=== PATIENT | male | born 1960 | race African-American/Black ===

== ENCOUNTER → 2019-07-26 15:45 | Outpatient (CLI) | payer BC, SELFPAY ==
[2019-07-26 15:45] VITALS: BMI 26.8
[2019-07-26 16:48] LABS: Anion Gap 5 (5-15); BUN 16 mg/dL (7-18); BUN/Creat Ratio 19.6 RATIO (10-20); Chloride 106 mmol/L (98-107); Creatinine, Serum 0.82 mg/dL (0.70-1.30); EST Glomerular Filtration Rate 103 mL/min (>60); Est Glom Filt Rate - Afr Amer 125 mL/min (>60); Glucose 82 mg/dL (74-106); Potassium 3.9 mmol/L (3.5-5.1); Sodium Level 139 mmol/L (136-145)
== END ==
PROVIDERS: PCP Internal Medicine; Referring Provider Internal Medicine; Visit Provider Internal Medicine
DX: I10 Essential (primary) hypertension (principal)
CPT/HCPCS: 36415; 80048

== ENCOUNTER → 2020-02-25 15:12 | Outpatient (CLI) | payer BC, SELFPAY ==
[2019-08-20 14:23] VITALS: BMI 26.8
--- NOTE | 2020-02-25 15:49 | EKG12_ITS ---
Test Reason : CHEST PAIN Blood Pressure : / mmHG Vent. Rate : 065 BPM Atrial Rate : 065 BPM P-R Int : 204 ms QRS Dur : 090 ms QT Int : 390 ms P-R-T Axes : 071 064 049 degrees QTc Int : 405 ms Normal sinus rhythm Voltage criteria for left ventricular hypertrophy Abnormal ECG Confirmed by DINA OSBORN, NICHO ([id number]), society editor MARLA CAMPBELL ([id number]) on 03/01/2020 10:52:15 AM Referred By: Luke Cai Confirmed By:NICHO ARROYO MD
[2020-02-25 16:57] LABS: Absolute Lymphocyte Count 2.21 X10^3/uL (0.83-4.51); Absolute Neutrophil Count 1.6 X10^3/uL (2.0-7.7); Basophil# 0.04 X10^3/uL; Basophil% 0.9 % (0-1); Eosinophil# 0.13 X10^3/uL; Hematocrit 40.7 % (40-54); Hemoglobin 12.8 g/dL (13.0-16.5); Lymphocyte # 2.21 X10^3/ul (4.0); Lymphocyte % 50.8 % (19-41); Mean Corp Hgb Conc 31.4 g/dL (32-36); Mean Corpuscular Hgb 28.3 pg (27.0-32.0); Mean Corpuscular Volume 89.8 fL (80-94); Mean Platelet Vol. 9.6 fl (6.2-12.0); Monocyte# 0.35 X10^3/uL; NRBC Flagged by Analyzer 0 % (0-5); Neutrophil # 1.61 X10^3/uL (2.7-7.7); Neutrophil % 37.1 % (47-70); Platelet Count 301 K/mm3 (150-450); RBC Distribution Width CV 12.4 % (11.6-14.6); RBC Distribution Width SD 40.9 fl (35.1-43.9); Red Blood Count 4.53 M/mm3 (4.6-6.2); White Blood Count 4.4 K/mm3 (4.4-11.0)
[2020-02-25 17:30] LABS: ALB/GLOB Ratio 0.8 RATIO (0.9-2.4); AST(SGOT) 20 U/L (15-37); Alanine Aminotransfer ALT/SGPT 26 U/L (16-61); Albumin, Serum 3.8 g/dL (3.2-5.0); Alkaline Phosphatase 68 U/L (45-117); Anion Gap 6 (5-15); BUN 18 mg/dL (7-18); Calcium,Total 8.9 mg/dL (8.5-10.1); Chloride 104 mmol/L (98-107); Cholesterol 202 mg/dL (200); EST Glomerular Filtration Rate 51 mL/min (>60); Est Glom Filt Rate - Afr Amer 62 mL/min (>60); Globulin 4.5 g/dL (2.2-4.2); Glucose 88 mg/dL (74-106); High Density Lipoprotein 75 mg/dL; Magnesium 2.3 mg/dL (1.6-2.6); PSA,Total - Annual Screen < 0.01 ng/mL (0.00-4.00); Potassium 3.9 mmol/L (3.5-5.1); Protein, Total 8.3 g/dL (6.4-8.2); Sodium Level 140 mmol/L (136-145); Thyroid Stim Hormone (TSH) 0.85 uIU/mL (0.358-3.74); Triglycerides 53 mg/dL; Very Low Density Lipoprotein 11 mg/dL (5-40)
== END ==
PROVIDERS: PCP Internal Medicine; Referring Provider Nurse Practitioner Family; Visit Provider Nurse Practitioner Family
DX: R00.2 Palpitations (principal); I10 Essential (primary) hypertension; E78.5 Hyperlipidemia, unspecified; J45.909 Unspecified asthma, uncomplicated; Z85.46 Personal history of malignant neoplasm of prostate
CPT/HCPCS: 36415; 80053; 80061; 83735; 84153; 84443; 85025; 93005; G0103

== ENCOUNTER → 2020-03-06 11:04 | Outpatient (CLI) | payer BC, SELFPAY ==
[2019-08-20 14:23] VITALS: BMI 26.8
== END ==
PROVIDERS: PCP Internal Medicine; Referring Provider Nurse Practitioner Family; Visit Provider Nurse Practitioner Family
DX: R00.2 Palpitations (principal)
CPT/HCPCS: 93225; 93226

== ENCOUNTER → 2020-07-04 16:00 | Outpatient (CLI) | payer BC, SELFPAY ==
[2020-07-04 17:01] LABS: BUN 11 mg/dL (7-18); EST Glomerular Filtration Rate 92 mL/min (>60); Glucose 132 mg/dL (74-106)
[2020-07-04 17:02] LABS: Anion Gap 6 (5-15); BUN/Creat Ratio 12.2 RATIO (10-20); Calcium,Total 8.8 mg/dL (8.5-10.1); Chloride 107 mmol/L (98-107); Est Glom Filt Rate - Afr Amer 112 mL/min (>60); Potassium 3.5 mmol/L (3.5-5.1); Sodium Level 142 mmol/L (136-145)
[2020-07-05 08:40] LABS: Hemoglobin A1c 5.9 % (3.8-5.6)
== END ==
PROVIDERS: PCP Internal Medicine; Referring Provider Nurse Practitioner Family; Visit Provider Nurse Practitioner Family
DX: R94.4 Abnormal results of kidney function studies (principal); R73.09 Other abnormal glucose
CPT/HCPCS: 36415; 80048; 83036

== ENCOUNTER → 2022-02-01 | Outpatient (CLI) | payer BC, SELFPAY ==
[2022-02-01 15:58] LABS: Absolute Lymphocyte Count 2.54 X10^3/uL (0.83-4.51); Absolute Neutrophil Count 1.9 X10^3/uL (2.0-7.7); Basophil# 0.03 X10^3/uL; Basophil% 0.6 % (0-1); Eosinophil# 0.17 X10^3/uL; Eosinophils% 3.3 % (0-5); Hematocrit 41.6 % (40-54); Hemoglobin 13.4 g/dL (13.0-16.5); Lymphocyte # 2.54 X10^3/ul (0.83-4.51); Mean Corp Hgb Conc 32.2 g/dL (32-36); Mean Corpuscular Hgb 29.1 pg (27.0-32.0); Mean Corpuscular Volume 90.2 fL (80-94); Mean Platelet Vol. 9.6 fl (6.2-12.0); Monocyte# 0.53 X10^3/uL; Monocyte% 10.2 % (0-10); NRBC Flagged by Analyzer 0 % (0-5); Neutrophil % 36.7 % (47-70); Platelet Count 270 K/mm3 (150-450); RBC Distribution Width CV 12.8 % (11.6-14.6); RBC Distribution Width SD 42.2 fl (35.1-43.9); Red Blood Count 4.61 M/mm3 (4.6-6.2); White Blood Count 5.2 K/mm3 (4.4-11.0)
[2022-02-01 16:33] LABS: ALB/GLOB Ratio 0.7 RATIO (0.9-2.4); AST(SGOT) 17 U/L (15-37); Alanine Aminotransfer ALT/SGPT 25 U/L (16-61); Albumin, Serum 3.6 g/dL (3.2-5.0); Alkaline Phosphatase 77 U/L (45-117); Anion Gap 8 (5-15); BUN 18 mg/dL (7-18); Calcium,Total 9.2 mg/dL (8.5-10.1); Chloride 105 mmol/L (98-107); EST Glomerular Filtration Rate 66 mL/min (>60); Est Glom Filt Rate - Afr Amer 79 mL/min (>60); Globulin 4.9 g/dL (2.2-4.2); Glucose 73 mg/dL (74-106); PSA,Total- Diagnostic < 0.01 ng/mL (0.0-4.0); Potassium 4.1 mmol/L (3.5-5.1); Protein, Total 8.5 g/dL (6.4-8.2); Sodium Level 140 mmol/L (136-145)
== END | disposition home or self-care (01) ==
LOC: LAB 14:49
PROVIDERS: PCP Internal Medicine; Referring Provider Internal Medicine Hematology & Oncology; Visit Provider Internal Medicine Hematology & Oncology
DX: C61 Malignant neoplasm of prostate (principal)
CPT/HCPCS: 36415; 80053; 84153; 85025

== ENCOUNTER → 2022-07-26 | Outpatient (CLI) | payer BC, SELFPAY ==
[2022-07-26 12:11] LABS: Absolute Lymphocyte Count 2.25 X10^3/uL (0.83-4.51); Absolute Neutrophil Count 1.4 X10^3/uL (2.0-7.7); Basophil# 0.02 X10^3/uL; Basophil% 0.5 % (0-1); Eosinophil# 0.06 X10^3/uL; Eosinophils% 1.5 % (0-5); Hematocrit 40.7 % (40-54); Hemoglobin 12.8 g/dL (13.0-16.5); Lymphocyte # 2.25 X10^3/ul (0.83-4.51); Mean Corp Hgb Conc 31.4 g/dL (32-36); Mean Corpuscular Hgb 27.5 pg (27.0-32.0); Mean Corpuscular Volume 87.3 fL (80-94); Mean Platelet Vol. 9.4 fl (6.2-12.0); Monocyte# 0.39 X10^3/uL; Monocyte% 9.5 % (0-10); NRBC Flagged by Analyzer 0 % (0-5); Neutrophil # 1.37 X10^3/uL (2.7-7.7); Neutrophil % 33.5 % (47-70); Platelet Count 267 K/mm3 (150-450); RBC Distribution Width CV 12.7 % (11.6-14.6); RBC Distribution Width SD 40.6 fl (35.1-43.9); Red Blood Count 4.66 M/mm3 (4.6-6.2); White Blood Count 4.1 K/mm3 (4.4-11.0)
[2022-07-26 12:51] LABS: ALB/GLOB Ratio 0.8 RATIO (0.9-2.4); AST(SGOT) 19 U/L (15-37); Alanine Aminotransfer ALT/SGPT 23 U/L (16-61); Albumin, Serum 3.5 g/dL (3.2-5.0); Alkaline Phosphatase 76 U/L (45-117); Anion Gap 6 (5-15); BUN 19 mg/dL (7-18); BUN/Creat Ratio 20.8 RATIO (10-20); Calcium,Total 9.2 mg/dL (8.5-10.1); Chloride 105 mmol/L (98-107); Cholesterol 190 mg/dL (200); Creatinine, Serum 0.92 mg/dL (0.70-1.30); EST Glomerular Filtration Rate 90 mL/min (>60); Est Glom Filt Rate - Afr Amer 108 mL/min (>60); Globulin 4.6 g/dL (2.2-4.2); Glucose 93 mg/dL (74-106); High Density Lipoprotein 63 mg/dL; Protein, Total 8.1 g/dL (6.4-8.2); Sodium Level 138 mmol/L (136-145); Thyroid Stim Hormone (TSH) 0.65 uIU/mL (0.358-3.74); Triglycerides 45 mg/dL; Very Low Density Lipoprotein 9 mg/dL (5-40)
[2022-07-26 13:22] LABS: Hemoglobin A1c 6.1 % (3.8-5.6)
== END | disposition home or self-care (01) ==
LOC: BIMLAB 11:28
PROVIDERS: PCP Internal Medicine; Referring Provider Nurse Practitioner Family; Visit Provider Nurse Practitioner Family
DX: I10 Essential (primary) hypertension (principal); E78.5 Hyperlipidemia, unspecified; R73.03 Prediabetes
CPT/HCPCS: 36415; 80053; 80061; 83036; 84443; 85025

== ENCOUNTER → 2022-10-07 | Outpatient (CLI) | payer BC, SELFPAY ==
--- NOTE | 2022-10-08 16:01 | PFT ---
INTRODUCTION: The patient is a 62-year-old -Mongolian male that presents for pulmonary function studies secondary to a diagnosis of dyspnea. Respiratory therapy reported good patient effort. Bronchodilators were used during testing. INTERPRETATION: Forced expiration spirometry demonstrates the presence of a moderately severe large airways obstructive ventilatory defect. There was a significant response to aerosolized bronchodilators. Spirograms are of good quality but do not plateau indicating slow emptying of the lungs. Body plethysmography was performed and revealed an elevated RV to 151% of predicted, indicative of underlying air trapping. Diffusing capacity by single breath CO is within normal limits. IMPRESSION: Partially reversible moderately severe large airways obstructive ventilatory defect with associated air trapping.
== END | disposition home or self-care (01) ==
PROVIDERS: PCP Internal Medicine; Referring Provider Nurse Practitioner Family; Visit Provider Nurse Practitioner Family
DX: R06.00 Dyspnea, unspecified (principal)
CPT/HCPCS: 94060; 94726; 94729

== ENCOUNTER 2022-11-01 07:29 | Day surgery (SDC) | payer BC, SELFPAY ==
[2022-11-01 07:58] VITALS: BP 143/80; PULSE 77; RESP 16; TEMP 36.9; O2SAT 96; BMI 26.9
[2022-11-01] MEDS: Lactated Ringers 1,000 ML 15 ML IV (08:08)
--- NOTE | 2022-11-01 08:40 | HP.PCM_ITS ---
[facility] - General General Date of Service: 11/01/22 Chief Complaint: Personal history of colon polyps [facility] Narrative SAMI SEQUEIRA, is a 62 M who presents for screening colonoscopy today. He had a previous colonoscopy performed in [facility] March 07, 2017 and had a polyp resected at that time. He presents via open access today. He denies any abdominal pain. No bright red blood per rectum or melena. He states that he has had a heart catheterization. He notes some COPD. He has had prostate cancer that was treated with resection. [facility] Medical History (Updated 10/31/22 @ 09:51 by Monica Castro) Anxiety Benign colonic polyp Cancer Chronic left hip pain COPD (chronic obstructive pulmonary disease) Former smoker History of Holter monitoring Hx of adenomatous polyp of colon Hyperlipemia Hypertension Polyclonal gammopathy Prediabetes Screening for colon cancer Wears dentures Wears glasses Home Medications albuterol sulfate 90 mcg/actuation aerosol inhaler (ProAir HFA) 2 puff inhalation Q6H PRN shortness of breath or wheezing #8.5 grams 10/22/22 [Rx Last Taken Unknown] amlodipine 5 mg tablet 5 mg PO DAILY #90 tabs 10/22/22 [Rx Last Taken Unknown] budesonide 160 mcg-glycopyr 9 mcg-formot 4.8 mcg/actuation HFA inhaler (Breztri Aerosphere) 2 inh inhalation BID #10.7 grams 10/22/22 [Rx Last Taken Unknown] Allergy/AdvReac Type Severity Reaction Status Date / Time No Known Allergies Allergy Verified 10/31/22 09:43 Family History Father Diabetes Other Asthma Hyperlipemia Hypertension Surgical History (Updated 10/31/22 @ 09:51 by Monica Castro) History of cardiac catheterization History of colonoscopy History of prostatectomy Social History Smoking Status: Former smoker quit date: 04/28/12 Tobacco: How many years used: 15 second hand exposure: No alcohol intake: current alcohol intake frequency: a few times a month details: occasionally substance use type: does not use what type of physical activity do you participate in: other details: physical job ROS Constitutional Constitutional: Reports systems reviewed and no addt'l complaints, except as documented Cardiovascular Cardiovascular: Denies chest pain Respiratory/Chest Respiratory/Chest: Denies shortness of breath at rest Gastrointestinal Gastrointestinal: Denies abdominal pain, change in bowel habits, hematochezia or melena Vital Signs Vital Signs Vital Signs: 11/01/22 07:58 11/01/22 07:58 Temperature 98.4 F Temperature Source Temporal Pulse Rate 77 Respiratory Rate 16 Respiratory Pattern Normal Blood Pressure 143/80 H Blood Pressure Mean 101 Blood Pressure Source Monitor Blood Pressure Position Semi-Fowlers Blood Pressure Location Left Arm Pulse Ox 96 Oxygen Delivery Method Room Air Weight Weight: 166 lb 7.184 oz Body Mass Index (BMI) 26.9 Physical Exam Const alert, oriented x3 and no apparent distress General Appearance: cooperative and comfortable Eyes General Eye: normal appearance of both eyes Neck General: normal visual inspection Chest inspection of chest normal Resp Effort and Inspection: able to speak in complete sentences and symmetric chest movement Auscultation: clear to auscultation bilaterally Cardio regular rate and regular rhythm GI soft to palpation, non-tender and non-distended Extremity no calf tenderness Neuro oriented x3 Psych thought process normal Assessment & Plan Assessment/Plan (1) Screening for colon cancer: PLAN: 62-year-old gentleman presents for a surveillance colonoscopy with possible biopsy or polypectomy as indicated. He presents via open access. He is aware of the technique, benefit, risk, alternatives. He has had an opportunity to ask and have questions answered. We will proceed as noted. Cedric Correa M.D., F.A.C.S.
[2022-11-01 09:15] VITALS: BP 103/70; BP 143/80; PULSE 81; RESP 16; TEMP 36.3; O2SAT 94
--- NOTE | 2022-11-01 09:15 | OP.COLON_ITS ---
Patient Name: Yunior Portillo Procedure Date: 11/01/2022 8:47 AM Date of : 1960 Age: 62 Procedure: Colonoscopy Indications: High risk colon cancer surveillance: Personal history of colonic polyps Providers: Cedric Correa MD Medicines: See the Anesthesia note for documentation of the administered medications Patient Profile: Last Colonoscopy: February 2017. Complications: No immediate complications. Procedure: Pre-Anesthesia Assessment: - Prior to the procedure, a History and Physical was performed, and patient medications and allergies were reviewed. The patient's tolerance of previous anesthesia was also reviewed. The risks and benefits of the procedure and the sedation options and risks were discussed with the patient. All questions were answered, and informed consent was obtained. Prior Anticoagulants: The patient has taken no previous anticoagulant or antiplatelet agents. ASA Grade Assessment: II - A patient with mild systemic disease. After reviewing the risks and benefits, the patient was deemed in satisfactory condition to undergo the procedure. After I obtained informed consent, the scope was passed under direct vision. Throughout the procedure, the patient's blood pressure, pulse, and oxygen saturations were monitored continuously. The colonoscope was introduced through the anus and advanced to the cecum, identified by appendiceal orifice and ileocecal valve. The colonoscopy was performed without difficulty. The patient tolerated the procedure well. The quality of the bowel preparation was good. The ileocecal valve and the appendiceal orifice were photographed. Scope In: 8:54:41 AM Scope Withdrawal Time 0 hours 6 minutes 45 seconds Scope Out: 9:11:00 AM Total Procedure Duration Time 0 hours 16 minutes 19 seconds Findings: The digital rectal exam findings include surgically absent prostate. Multiple diverticula were found in the sigmoid colon and descending colon. Impression: - A surgically absent prostate found on digital rectal exam. - Diverticulosis in the sigmoid colon and in the descending colon. - No specimens collected. Recommendation: - Discharge patient to home. - Resume previous diet. - Continue present medications. - Repeat colonoscopy in 5 years for surveillance. Procedure Code(s): --- Professional --- 56600, Colonoscopy, flexible; diagnostic, including collection of specimen(s) by brushing or washing, when performed (separate procedure) Diagnosis Code(s): --- Professional --- Z86.010, Personal history of colonic polyps Z90.79, Acquired absence of other genital organ(s) K57.30, Diverticulosis of large intestine without perforation or abscess without bleeding CPT copyright 2017 [employer]. All rights reserved. The codes documented in this report are preliminary and upon classification control clerk review may be revised to meet current compliance requirements. Cedric Correa MD 11/01/2022 9:15:38 AM This report has been signed electronically. Number of Addenda: 0 Note Initiated On: 11/01/2022 8:47 AM
--- NOTE | 2022-11-01 09:16 | OP.CCLET_ITS ---
11/01/2022 Bernabe Middleton MD [address] [place] [address] [place] [address] Re : Colonoscopy procedure for Yunior Portillo Dear Dr. Middleton This procedure was performed on Tuesday, November 01, 2022. My impressions and recommendations are as follows: Impressions : - A surgically absent prostate found on digital rectal exam. - Diverticulosis in the sigmoid colon and in the descending colon. - No specimens collected. Recommendations : - Discharge patient to home. - Resume previous diet. - Continue present medications. - Repeat colonoscopy in 5 years for surveillance. My findings are described in the full procedure note, which is enclosed. If I can be of further assistance, please feel free to contact me at Doctor phone number(s): Work: . Sincerely, Cedric Correa MD 11/01/2022 9:15:38 AM This report has been signed electronically.
[2022-11-01 09:20] VITALS: BP 118/75; BP 143/80; PULSE 77; RESP 16; O2SAT 97
[2022-11-01 09:25] VITALS: BP 131/83; BP 143/80; PULSE 73; RESP 16; O2SAT 100
[2022-11-01 09:30] VITALS: BP 119/77; BP 143/80; PULSE 75; RESP 16; TEMP 36.4; O2SAT 100
[2022-11-01 09:42] VITALS: BP 143/80
== END 2022-11-01 10:01 | disposition home or self-care (01) ==
LOC: EN 07:33 → AC 07:33
PROVIDERS: PCP Internal Medicine; Referring Provider Internal Medicine; Visit Provider Surgery
PROC: 0DJD8ZZ Inspection of Lower Intestinal Tract, Via Natural or Artificial Opening Endoscopic (ICD-10-PCS; CPT 45378; principal; 2022-11-01 08:40)
DX: Z12.11 Encounter for screening for malignant neoplasm of colon (principal); J44.9 Chronic obstructive pulmonary disease, unspecified; Z86.010 Personal history of colon polyps; E78.5 Hyperlipidemia, unspecified; Z87.891 Personal history of nicotine dependence; K57.30 Diverticulosis of large intestine without perforation or abscess without bleeding; I10 Essential (primary) hypertension; Z90.79 Acquired absence of other genital organ(s); Z85.46 Personal history of malignant neoplasm of prostate; Z79.899 Other long term (current) drug therapy
CPT/HCPCS: 45378; J7120; J2405

== ENCOUNTER → 2022-12-31 | Outpatient (CLI) | payer BC, SELFPAY ==
--- NOTE | 2022-12-31 14:06 | CT_ITS ---
STUDY: LOW DOSE CT LUNG CANCER SCREENING REASON FOR EXAM: Male, 62 years old. Lung cancer screening -- 30 pk yr hx;former smoker;asymptomatic RADIATION DOSAGE (If Supplied By Facility): CTDIvol = ( 2.39 ) mGy, DLP = ( 87.27 ) mGycm TECHNIQUE: No contrast was administered. Low dose technique was utilized (average mAS-38 and kVp 120). 1.25 mm axial source images with a slice interval of 1.25-mm were reconstructed in lung windows. 2.5 mm axial source images with a slice interval of 2.5-mm were reconstructed in lung windows. 5.0 mm axial source images with a slice interval of 5.0-mm were reconstructed in soft tissue windows. COMPARISON: None. NODULES: No suspicious nodules are seen. Emphysema: Hyperinflation. Mild degree of emphysematous changes slightly more prominent in the right lung apex. Minimal increased markings in the medial aspect of the right middle lobe suggestive of scarring. Endobronchial lesion: None Aorta: Mild atherosclerotic plaque formation of the aortic arch. CORONARY ARTERIES: Coronary artery calcification is seen. Heart: Unremarkable. Pulmonary artery: Unremarkable. Mediastinal nodes: Small benign appearing mediastinal lymph nodes. Other chest and abdominal findings: CT/Low Dose CT Lung Screening IMPRESSION: Lung-RADS category 2 - Continue annual screening with LDCT in 12 months. IMPORTANT NOTES FOR USE: ACR Lung-RADS Version 1.1 Assessment Categories Release Date: 2018 Category: Coded 0-4 bases on nodule(s) with highest degree of suspicion. Negative screen is defined as categories 1 and 2; a positive screen is defined as categories 3 and 4. Category 3 and 4A nodules that are unchanged on interval CT should be coded as category 2, and individuals returned to screening in 12 months. Category 4X: Category 3 or 4 nodules with additional imaging findings that increase the suspicion of lung cancer, such as spiculation, GGN that doubles in size in 1 year, enlarged lymph notes, etc. Category Modifiers: S (significant finding unrelated to lung cancer) Electronically Signed: Brown Ambriz MD at 14:53 EDT ,
== END | disposition home or self-care (01) ==
LOC: CT 14:04
PROVIDERS: PCP Internal Medicine; Referring Provider Nurse Practitioner Family; Visit Provider Nurse Practitioner Family
DX: Z12.2 Encounter for screening for malignant neoplasm of respiratory organs (principal); Z87.891 Personal history of nicotine dependence
CPT/HCPCS: 71271

== ENCOUNTER → 2023-04-04 | Outpatient (CLI) | payer BC, SELFPAY ==
[2023-04-04 17:19] LABS: PSA,Total- Diagnostic < 0.01 ng/mL (0.0-4.0)
== END | disposition home or self-care (01) ==
LOC: LAB 15:37
PROVIDERS: PCP Internal Medicine; Referring Provider Internal Medicine Hematology & Oncology; Visit Provider Internal Medicine Hematology & Oncology
DX: C61 Malignant neoplasm of prostate (principal)
CPT/HCPCS: 36415; 84153

== ENCOUNTER → 2023-04-23 | Outpatient (CLI) | payer BC, SELFPAY ==
[2023-04-25 13:07] LABS: Albumin 3.7 g/dL (2.9-4.4); Alpha-1-Globulins 0.2 g/dL (0.0-0.4); Alpha-2-Globulins 0.6 g/dL (0.4-1.0); Gamma Globulin 1.7 g/dL (0.4-1.8); Immunoglobulin A 403 mg/dL (61-437); Immunoglobulin G 1676 mg/dL (603-1613); Immunoglobulin M 102 mg/dL (20-172); PROEL- TOTAL PROTEIN 7.4 g/dL (6.0-8.5)
== END | disposition home or self-care (01) ==
LOC: LAB 15:53
PROVIDERS: PCP Internal Medicine; Referring Provider Internal Medicine Hematology & Oncology; Visit Provider Internal Medicine Hematology & Oncology
DX: D89.0 Polyclonal hypergammaglobulinemia (principal)
CPT/HCPCS: 36415; 82784; 84165; 86334

== ENCOUNTER → 2023-09-12 | Outpatient (CLI) | payer BC, SELFPAY ==
[2023-09-12 17:05] LABS: Absolute Lymphocyte Count 2.29 X10^3/uL (0.83-4.51); Absolute Neutrophil Count 1.7 X10^3/uL (2.0-7.7); Basophil# 0.03 X10^3/uL; Basophil% 0.6 % (0-1); Eosinophil# 0.12 X10^3/uL; Eosinophils% 2.6 % (0-5); Hematocrit 39.9 % (40-54); Hemoglobin 12.5 g/dL (13.0-16.5); Lymphocyte # 2.29 X10^3/ul (0.83-4.51); Lymphocyte % 48.9 % (19-41); Mean Corp Hgb Conc 31.3 g/dL (32-36); Mean Corpuscular Hgb 27.2 pg (27.0-32.0); Mean Corpuscular Volume 86.9 fL (80-94); Mean Platelet Vol. 9.6 fl (6.2-12.0); Monocyte# 0.56 X10^3/uL; NRBC Flagged by Analyzer 0 % (0-5); Neutrophil # 1.67 X10^3/uL (2.7-7.7); Neutrophil % 35.7 % (47-70); Platelet Count 266 K/mm3 (150-450); RBC Distribution Width CV 12.7 % (11.6-14.6); RBC Distribution Width SD 40.2 fl (35.1-43.9); Red Blood Count 4.59 M/mm3 (4.6-6.2); White Blood Count 4.7 K/mm3 (4.4-11.0)
[2023-09-12 17:38] LABS: ALB/GLOB Ratio 0.9 RATIO (0.9-2.4); AST(SGOT) 20 U/L (15-37); Alanine Aminotransfer ALT/SGPT 26 U/L (16-61); Albumin, Serum 3.8 g/dL (3.2-5.0); Alkaline Phosphatase 70 U/L (45-117); Anion Gap 5 (5-15); BUN 17 mg/dL (7-18); BUN/Creat Ratio 20.8 RATIO (10-20); Calcium,Total 8.9 mg/dL (8.5-10.1); Chloride 106 mmol/L (98-107); Cholesterol 205 mg/dL (200); Creatinine, Serum 0.82 mg/dL (0.70-1.30); EST Glomerular Filtration Rate 102 mL/min (>60); Est Glom Filt Rate - Afr Amer 123 mL/min (>60); Globulin 4.3 g/dL (2.2-4.2); Glucose 77 mg/dL (74-106); High Density Lipoprotein 61 mg/dL; Potassium 3.7 mmol/L (3.5-5.1); Protein, Total 8.1 g/dL (6.4-8.2); Sodium Level 139 mmol/L (136-145); T4 Free Direct 0.94 ng/dL (0.76-1.46); Thyroid Stim Hormone (TSH) 1.69 uIU/mL (0.358-3.74); Triglycerides 65 mg/dL; Very Low Density Lipoprotein 13 mg/dL (5-40)
[2023-09-12 17:43] LABS: Hemoglobin A1c 5.8 % (3.8-5.6)
== END | disposition home or self-care (01) ==
LOC: LAB 16:27
PROVIDERS: PCP Internal Medicine; Referring Provider Internal Medicine; Visit Provider Internal Medicine
DX: I10 Essential (primary) hypertension (principal); E78.5 Hyperlipidemia, unspecified; R73.03 Prediabetes
CPT/HCPCS: 80053; 80061; 83036; 84439; 84443; 85025

== ENCOUNTER → 2024-02-03 | Outpatient (CLI) | payer BC, SELFPAY ==
--- NOTE | 2024-02-03 14:29 | CT_ITS ---
STUDY: LOW DOSE CT LUNG CANCER SCREENING REASON FOR EXAM: Male, 64 years old. Lung cancer screening -- and gt; 20 pk yr hx;former smoker; asymptomatic RADIATION DOSAGE (If Supplied By Facility): CTDIvol = ( 2.39 ) mGy, DLP = ( 81.60 ) mGycm TECHNIQUE: No contrast was administered. Low dose technique was utilized (average mAS-38 and kVp 120). 1.25 mm axial source images with a slice interval of 1.25-mm were reconstructed in lung windows. 2.5 mm axial source images with a slice interval of 2.5-mm were reconstructed in lung windows. 5.0 mm axial source images with a slice interval of 5.0-mm were reconstructed in soft tissue windows. COMPARISON: Comparison is made with prior study dated December 31, 2022. NODULES: No suspicious nodules are seen. Emphysema: Hyperinflation. Mild degree of emphysematous changes more prominent in the right lung apex. Stable minimal scarring in the inferior aspect of the right middle lobe. Endobronchial lesion: None Aorta: Mild atherosclerotic plaque formation of the aortic arch. CORONARY ARTERIES: Coronary artery calcification is seen. Heart: Remarkable Pulmonary artery: Unremarkable Mediastinal nodes: Unremarkable Other chest and abdominal findings: CT/Low Dose CT Lung Screening IMPRESSION: Lung-RADS category 2 - Continue annual screening with LDCT in 12 months. IMPORTANT NOTES FOR USE: ACR Lung-RADS Version 1.1 Assessment Categories Release Date: 2018 Category: Coded 0-4 bases on nodule(s) with highest degree of suspicion. Negative screen is defined as categories 1 and 2; a positive screen is defined as categories 3 and 4. Category 3 and 4A nodules that are unchanged on interval CT should be coded as category 2, and individuals returned to screening in 12 months. Category 4X: Category 3 or 4 nodules with additional imaging findings that increase the suspicion of lung cancer, such as spiculation, GGN that doubles in size in 1 year, enlarged lymph notes, etc. Category Modifiers: S (significant finding unrelated to lung cancer) Electronically Signed: Brown Ambriz MD at 15:06 EDT ,
== END | disposition home or self-care (01) ==
LOC: CT 14:29
PROVIDERS: PCP Internal Medicine; Referring Provider Nurse Practitioner Family; Visit Provider Nurse Practitioner Family
DX: Z12.2 Encounter for screening for malignant neoplasm of respiratory organs (principal); Z87.891 Personal history of nicotine dependence
CPT/HCPCS: 71271

== ENCOUNTER → 2024-03-04 | Outpatient (CLI) | payer BC, SELFPAY ==
[2024-03-04 16:54] LABS: Absolute Lymphocyte Count 1.92 X10^3/uL (0.83-4.51); Absolute Neutrophil Count 1.3 X10^3/uL (2.0-7.7); Basophil# 0.03 X10^3/uL; Basophil% 0.8 % (0-1); Eosinophil# 0.13 X10^3/uL; Eosinophils% 3.5 % (0-5); Hematocrit 36.4 % (40-54); Hemoglobin 11.8 g/dL (13.0-16.5); Lymphocyte # 1.92 X10^3/ul (0.83-4.51); Lymphocyte % 51.1 % (19-41); Mean Corp Hgb Conc 32.4 g/dL (32-36); Mean Corpuscular Volume 86.3 fL (80-94); Mean Platelet Vol. 9.5 fl (6.2-12.0); Monocyte# 0.35 X10^3/uL; Monocyte% 9.3 % (0-10); NRBC Flagged by Analyzer 0 % (0-5); Neutrophil # 1.33 X10^3/uL (2.7-7.7); Neutrophil % 35.3 % (47-70); Platelet Count 252 K/mm3 (150-450); RBC Distribution Width CV 12.6 % (11.6-14.6); RBC Distribution Width SD 39.7 fl (35.1-43.9); Red Blood Count 4.22 M/mm3 (4.6-6.2); White Blood Count 3.8 K/mm3 (4.4-11.0)
[2024-03-04 17:04] LABS: ALB/GLOB Ratio 0.9 RATIO (0.9-2.4); AST(SGOT) 28 U/L (15-37); Alanine Aminotransfer ALT/SGPT 26 U/L (16-61); Albumin, Serum 3.5 g/dL (3.2-5.0); Alkaline Phosphatase 75 U/L (45-117); Anion Gap 2 (5-15); BUN 15 mg/dL (7-18); BUN/Creat Ratio 16.1 RATIO (10-20); Chloride 108 mmol/L (98-107); Cholesterol 186 mg/dL (200); Creatinine, Serum 0.93 mg/dL (0.70-1.30); EST Glomerular Filtration Rate 88 mL/min (>60); Est Glom Filt Rate - Afr Amer 106 mL/min (>60); Globulin 4.1 g/dL (2.2-4.2); Glucose 93 mg/dL (74-106); High Density Lipoprotein 64 mg/dL; Potassium 3.8 mmol/L (3.5-5.1); Protein, Total 7.6 g/dL (6.4-8.2); Sodium Level 138 mmol/L (136-145); Triglycerides 81 mg/dL; Very Low Density Lipoprotein 16 mg/dL (5-40)
== END | disposition home or self-care (01) ==
LOC: LAB 15:56
PROVIDERS: PCP Internal Medicine; Referring Provider Internal Medicine; Visit Provider Internal Medicine
DX: I10 Essential (primary) hypertension (principal); E78.5 Hyperlipidemia, unspecified
CPT/HCPCS: 36415; 80053; 80061; 85025

== ENCOUNTER → 2024-05-13 | Outpatient (CLI) | payer BC, SELFPAY ==
[2024-05-13 17:14] LABS: PSA,Total- Diagnostic < 0.01 ng/mL (0.0-4.0)
== END | disposition home or self-care (01) ==
LOC: LAB 16:07
PROVIDERS: PCP Internal Medicine; Referring Provider Internal Medicine Hematology & Oncology; Visit Provider Internal Medicine Hematology & Oncology
DX: C61 Malignant neoplasm of prostate (principal)

== ENCOUNTER → 2024-09-14 | Outpatient (CLI) | payer BC, SELFPAY ==
[2024-09-14 19:00] LABS: AST(SGOT) 27 U/L (<=37); Alanine Aminotransfer ALT/SGPT 18 U/L (<=46)
== END | disposition home or self-care (01) ==
LOC: MTLAB 16:18
PROVIDERS: PCP Internal Medicine; Referring Provider Physician Assistant Medical; Visit Provider Physician Assistant Medical
DX: B35.1 Tinea unguium (principal)
CPT/HCPCS: 36415; 84450; 84460

== ENCOUNTER 2025-02-08 12:12 | Emergency (ER) | payer BC, SELFPAY ==
[2025-02-08 12:14] VITALS: BP 129/76; PULSE 78; RESP 18; TEMP 36.3; O2SAT 96; BMI 28.0
--- NOTE | 2025-02-08 12:28 | EKG12_ITS ---
Test Reason : CP Blood Pressure : */* mmHG Vent. Rate : 73 BPM Atrial Rate : 73 BPM P-R Int : 190 ms QRS Dur : 90 ms QT Int : 376 ms P-R-T Axes : 77 55 47 degrees QTcB Int : 414 ms Normal sinus rhythm Normal ECG Confirmed by ZORAIDA OSBORN, ARJUN ([id number]), staff editor BEHZAD LABOY ([id number]) on 02/09/2025 10:53:04 AM Referred By: TB Confirmed By: ARJUN CONWAY MD
--- NOTE | 2025-02-08 12:28 | RAD_ITS ---
PROCEDURE: CHEST PA AND LATERAL 02/08/2025 REASON FOR EXAM: CHEST PAIN TECHNIQUE: Procedure Code: RADCXR Modality: DX Procedure: CHEST PA AND LATERAL COMPARISON: None FINDINGS: Hardware: EKG electrodes are seen. Heart: The heart size is normal. Mediastinum: The mediastinal contour is unremarkable. Lungs: The lungs are clear. Bones: Degenerative changes are identified within the thoracic spine. RAD/Chest PA and Lateral IMPRESSION: NO ACUTE FINDINGS. Reading Location: [place] [address]
[2025-02-08] MEDS: 0.9% Normal Saline (1000mL) 1,000 ML 999 ML IV (12:43)
[2025-02-08 12:48] LABS: Hematocrit 36.4 % (40-54); Hemoglobin 12.0 g/dL (13.0-16.5); Immature Granulocytes Count 0.010 X10^3/uL (0.0-0.0); Mean Corp Hgb Conc 33.0 g/dL (32-36); Mean Corpuscular Volume 86.7 fL (80-94); Mean Platelet Vol. 9.0 fl (6.2-12.0); NRBC Flagged by Analyzer 0 % (0-5); Platelet Count 241 K/mm3 (150-450); RBC Distribution Width CV 13.0 % (11.6-14.6); RBC Distribution Width SD 41.0 fl (35.1-43.9); Red Blood Count 4.20 M/mm3 (4.6-6.2); White Blood Count 4.2 K/mm3 (4.4-11.0)
[2025-02-08 12:57] LABS: Prothrombin Time (Protime)PT. 14.0 SECONDS (11.7-14.9)
[2025-02-08 12:58] LABS: Partial Thromboplast Time 29.6 Seconds (24.1-36.2)
--- NOTE | 2025-02-08 13:03 | CT_ITS ---
PROCEDURE: CTA CHEST W/WO CONTRAST 02/08/2025 REASON FOR EXAM: L CHEST PAIN WITH INSPIRIATON TECHNIQUE: Procedure Code: CTCTACHWW Modality: CT Procedure: CTA CHEST W/WO CONTRAST Multiplanar Sagittal and Coronal images were obtained. 3D post processing was performed CONTRAST: Isovue 370 VOLUME: 100 mL One or more dose reduction techniques were used (e.g., Automated exposure control, adjustment of the mA and/or kV according to patient size, use of iterative reconstruction technique). RADIATION DOSE SUMMARY: CTDlvol: 11.8 mGy DLP: 360.83 mGycm COMPARISON: Prior chest radiograph done earlier in the day. FINDINGS: Hardware: None Lymph nodes: No abnormal mediastinal or hilar lymph nodes are seen. Heart: The heart is nonenlarged. Mild degree of coronary artery calcification. Thoracic Aorta: Mild atherosclerotic calcific plaques of the aortic arch. Pulmonary Vessels: No evidence of pulmonary embolism. Lungs and Airways: No pulmonary infiltrate or mass lesion is seen. Pleura: No pleural effusion. Upper Abdomen: Findings suggestive of a 2.9 cm cyst in the upper anterior aspect of the left kidney. Bones: Degenerative changes of the thoracic spine. CT/CTA Chest W/WO Contrast IMPRESSION: No evidence of pulmonary embolism. Mild coronary artery calcification. No pulmonary infiltrate or mass is seen. Reading Location: [place] [id number]
--- NOTE | 2025-02-08 13:03 | ED.VIS.CHEST ---
HPI History of Present Illness Chief Complaint: Chest Pain Narrative Narrative: Patient is a 65-year-old male with a past medical history of COPD, prediabetic, anxiety, hypertension, hyperlipidemia, lung cancer who presented to the emergency department with a chief complaint of chest pain. Patient states that this morning when he woke up as he was getting ready folic he developed left-sided chest pain he states that this was worse when he tried to take a deep breath. 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 He states that he called the on-call nurse through his primary care physician and they advised him to come to the emergency department to be further evaluated. [facility] Medical History Screening for cardiovascular condition Flu vaccine need Change in nail appearance Health care maintenance Fatigue History of tobacco use Encounter for screening for malignant neoplasm of lung Wears glasses Wears dentures Cancer History of Holter monitoring Former smoker COPD (chronic obstructive pulmonary disease) Chronic left hip pain Hx of adenomatous polyp of colon Screening for colon cancer Prediabetes Polyclonal gammopathy Benign colonic polyp Anxiety Hyperlipemia Hypertension Home Medications ?Medication ?Instructions ?Recorded ?Last Taken ?Type fluconazole 150 mg tablet 300 mg PO QWEEK 09/01/24 Unknown History metoprolol tartrate 50 mg tablet 50 mg PO QDAY #1 TAB 10/28/24 Unknown Rx rosuvastatin 5 mg tablet 5 mg PO QDAY #30 tabs 11/26/24 Unknown Rx albuterol sulfate 90 mcg/actuation 2 puff inhalation Q6H PRN 12/30/24 Unknown Rx aerosol inhaler shortness of breath or wheezing #8.5 grams budesonide 160 mcg-glycopyr 9 2 inh inhalation BID #10.7 grams 12/30/24 Unknown Rx mcg-formot 4.8 mcg/actuation HFA inhaler (Breztri Aerosphere) amlodipine 5 mg tablet 5 mg PO DAILY #90 tabs 01/05/25 Unknown Rx Allergy/AdvReac Type Severity Reaction Status Date / Time No Known Allergies Allergy Verified 02/08/25 12:13 Family History Father Diabetes Other Asthma Hyperlipemia Hypertension Surgical History History of cardiac catheterization History of colonoscopy History of prostatectomy Social History Smoking Status: Former smoker quit date: 04/28/12 pack-years: 30 Tobacco: How many years used: 30 how long ago did patient quit smokin second hand exposure: Yes alcohol intake: current alcohol intake frequency: a few times a month details: occasionally substance use type: does not use what type of physical activity do you participate in: other details: physical job ROS ROS ED ROS Narrative Constitutional: Denies any fevers or chills Eyes: Denies double vision Cardiovascular: Complains of chest pain as noted above denies palpitations Respiratory: Denies coughing wheezing complains of pain with inspiration as noted above Abdomen: Denies abdominal pain nausea vomiting diarrhea : Denies any urinary symptoms Neurological: Denies numbness, weakness, tingling Musculoskeletal: Denies back pain Skin: Denies any rashes or lesions EXAM Physical Exam Narrative Exam Narrative: General: Patient is lying in bed rest comfortably did not appear to be in acute distress Head: Atraumatic, normocephalic Eyes: PERRL bilaterally, EOMI bilateral, no conjunctival injection noted Neck: Soft, supple, trachea midline Cardiovascular: Regular rate and rhythm Respiratory: Clear to auscultation bilaterally Abdomen: No tenderness to palpation, soft, nondistended Extremities: Radial pulses +2/4 in the bilateral extremities, +5/5 strength noted in the bilateral upper and lower extremities Neurological: Patient following commands knew that he was at [facility] the year is 2024 Skin: Warm, dry, intact no rashes or lesions noted Const Vital Signs: 02/08/25 12:14 02/08/25 12:53 02/08/25 13:12 Temperature 97.3 F L Temperature Source Temporal Pulse Rate 78 69 Respiratory Rate 18 Blood Pressure 129/76 H 133/81 H Blood Pressure Mean 93 98 Pulse Ox 96 Oxygen Delivery Method Room Air Room Air 02/08/25 14:00 02/08/25 15:00 Temperature Temperature Source Pulse Rate 64 75 Respiratory Rate 16 Blood Pressure 145/81 H 147/90 H Blood Pressure Mean 102 109 Pulse Ox 99 Oxygen Delivery Method Room Air MDM MDM MDM Narrative Medical decision making narrative: Patient is a 65-year-old male who presented to the emergency department the chief complaint of left-sided chest pain that is worse with deep inspiration. On the differential diagnose includes but limited to ACS, pneumonia, pneumothorax, intrathoracic mass, pulmonary embolism. Once workup is obtained and reviewed he will be reevaluated patient CBC reviewed and showed a white blood count of 4.2, hemoglobin is 12, plate count was noted to be normal at 241. Patient INR normal at 1.1, PT of 14. Patient sodium is 139, potassium normal 4.1, creatinine normal 0.87. Patient's troponin was less than 6 with a delta troponin pending. Patient EKG reviewed which showed sinus rhythm with a rate of 73 bpm the AR interval 190. Patient's proBNP was less than 36. Patient's chest x-ray reviewed by myself and by radiology showed no acute cardiopulmonary processes. I did a CTA of his chest given his history of cancer and pain that is worse with deep inspiration this was reviewed and showed no evidence of pulmonary embolism he has mild coronary artery calcification no pulmonary infiltrate or masses noted. 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 He is advised to rotate Tylenol and ibuprofen [id number]. He is agreeable to plan all question concerns answered he is discharged home in stable condition. Lab Data Labs: Laboratory Results - last 24 hr 02/08/25 02/08/25 12:38 14:50 WBC 4.2 L RBC 4.20 L Hgb 12.0 L Hct 36.4 L MCV 86.7 MCH 28.6 MCHC 33.0 RDW Std Deviation 41.0 RDW Coeff of Dottie 13.0 Plt Count 241 MPV 9.0 Immature Gran % (Auto) 0.200 Neut % (Auto) 47.5 Lymph % (Auto) 39.7 [place] % (Auto) 9.5 Eos % (Auto) 2.6 Baso % (Auto) 0.5 Absolute Neuts (auto) 2.0 Absolute Lymphs (auto) 1.67 Nucleated RBC % 0 PT 14.0 INR 1.1 APTT 29.6 Sodium 139 Potassium 4.1 Chloride 105 Carbon Dioxide 23.6 Anion Gap 10 BUN 17 Creatinine 0.87 Estim Creat Clear Calc 85.84 Est GFR (MDRD) Non-Af 97 BUN/Creatinine Ratio 19.5 Glucose 92 Calcium 8.9 Troponin T High Sens < 6 Troponin T Hi Sens 2 Hr < 6 NT pro BNP II < 36 Radiography Diagnostic Testing: Clinical Impression(s) from Imaging Studies Chest X-Ray 02/08/25 12:28 IMPRESSION: NO ACUTE FINDINGS. Reading Location: [facility]-1 Chest CTA 02/08/25 13:03 IMPRESSION: No evidence of pulmonary embolism. Mild coronary artery calcification. No pulmonary infiltrate or mass is seen. Reading Location: [facility]- Discharge Plan Triage Chief Complaint: Chest Pain ED Provider: Ubaldo Anand Dx/Rx/DC Orders Clinical Impression: Hypertension, COPD (chronic obstructive pulmonary disease), Chest pain Prescriptions: No Action fluconazole 150 mg tablet 300 mg PO QWEEK metoprolol tartrate 50 mg tablet 50 mg PO QDAY Qty: 1 0RF rosuvastatin 5 mg tablet 5 mg PO QDAY Qty: 30 3RF albuterol sulfate 90 mcg/actuation HFA aerosol inhaler 2 puff INHALATION Q6H PRN (Reason: shortness of breath or wheezing) Qty: 8.5 3RF Breztri Aerosphere 160-9-4.8 mcg/actuation HFA aerosol inhaler 2 inh inhalation BID Qty: 10.7 6RF amlodipine 5 mg tablet 5 mg PO DAILY Qty: 90 0RF Stand Alone Forms: Work / School Excuse Primary Care Provider: Bernabe Middleton Referrals: Bernabe Middleton MD [Primary Care Provider, Internal Medicine] Activity Restrictions/Additional Instructions: Follow-up with your cardiology team in the outpatient setting. Your blood work did not show any acute findings your chest x-ray was normal and your CT did not show any blood clots in your lungs. Rotate Tylenol and ibuprofen [id number] for mild to moderate pain control when you do that she can take something every 3 hours. Max dose Tylenol in 24 hours 4000 mg max dose of ibuprofen in 24 hours 3200 mg. Return with worsening symptoms or other concerns Print Language: Guyanese Disposition Disposition: Home, Self Care
[2025-02-08 13:12] VITALS: BP 133/81; PULSE 69
[2025-02-08 13:33] LABS: Troponin T High Sensitivity < 6 ng/L (<=22)
[2025-02-08 13:35] LABS: Anion Gap 10 (5-15); BUN 17 mg/dL (4-19); BUN/Creat Ratio 19.5 RATIO (10-20); Calcium,Total 8.9 mg/dL (7.6-11.0); Carbon Dioxide 23.6 mmol/L (21.0-32.0); Chloride 105 mmol/L (98-108); Estimated Creatinine Clearance 85.84 ml/min (50-250); Glucose 92 mg/dL (70-99); Potassium 4.1 mmol/L (3.3-5.1)
[2025-02-08 13:37] LABS: Pro- Brain NATRIURETIC PEPTIDE < 36 pg/mL (<=900)
[2025-02-08 14:00] VITALS: BP 145/81; PULSE 64
[2025-02-08 15:00] VITALS: BP 147/90; PULSE 75; RESP 16; O2SAT 99
[2025-02-08 15:43] LABS: Troponin T High Sens 2 HR < 6 ng/L (<=22)
[2025-02-08 15:55] VITALS: BP 129/76; PULSE 64; RESP 18; TEMP 36.6; O2SAT 99
== END 2025-02-08 15:55 | disposition home or self-care (01) ==
PROVIDERS: Emergency Provider Emergency Medicine; PCP Internal Medicine; Visit Provider Emergency Medicine
DX: R07.9 Chest pain, unspecified (principal); J44.0 Chronic obstructive pulmonary disease with (acute) lower respiratory infection; I10 Essential (primary) hypertension; E78.5 Hyperlipidemia, unspecified; R73.03 Prediabetes; F41.9 Anxiety disorder, unspecified; Z79.899 Other long term (current) drug therapy; Z87.891 Personal history of nicotine dependence; Z85.118 Personal history of other malignant neoplasm of bronchus and lung
CPT/HCPCS: 71046; 71275; 80048; 83880; 84484; 85025; 85610; 85730; 93005; 99284; Q9967; A4216

== ENCOUNTER → 2025-03-25 | Outpatient (CLI) | payer BC, SELFPAY ==
--- OUTSIDE RECORDS SUMMARY | 2025-03-25 09:28 | XMS RPT_ITS | CCD ---
Author Organization [facility] Care Team Providers Care Ice Cream Man Name Role Phone TEGAN JOSEPH Attending Unavailable TEGAN JOSEPH Primary Care Unavailable PAYTON VIDES Consulting Unavailable CHRISTINA GILMORE Attending Unavailable TEGAN JOSEPH Primary Care Unavailable JEREMY CHAPPELL Consulting Unavailable TEGAN JOSEPH Consulting Unavailable CHRISTINA GILMORE Consulting Unavailable Dr. Bernabe Middleton Primary Care Provider [phone] Dr. Bernabe Middleton Referring Provider 1([facility] [place])[phone] [facility] Luke Attending Provider [phone] Juhi Riley Attending Provider Unavailable [facility] Luke Referring Provider [phone] [facility], [facility] Luke Other Provider 1([facility] [place])[phone] Yehuda Bueno Attending Provider 1([facility] [place])[phone] Cedric Correa Attending Provider Dr. Cedric Correa Other Provider 1([facility] [place])[phone] Bernabe Middleton Primary Care Provider [phone] Dr. Bernabe Middleton Referring Provider [phone] [facility] Luke Attending Provider Dr. Oliver Brewster Attending Provider Dr. Donal Randall Attending Provider 1([facility] [place])[phone] [facility], [facility] Madhuri Attending Provider Vj [facility], [facility] Madhuri Referring Provider 1([facility] [place] )[phone] Dr. Bernabe Middleton Primary Care Provider Vj [facility], [facility] Madhuri Attending Provider Vj [facility], [facility] Madhuri Referring Provider Kane OSBORN, Dr. Kidd Primary Care Physician Kane OSBORN, Dr. Kidd Attending Physician Kane OSBORN, Dr. Kidd Referring Provider Prakash OSBORN, Dr. Mansfield Attending Physician Dr. Ubaldo Anand DO Attending Physician Dr. Ubaldo Anand DO Emergency Department Physic patience Jaswant Dumont Referring Unavailable Oleghe, Efewongbe Primary Care Unavailable Jaswant Dumont Attending Unavailable Ubaldo Anand Attending Unavailable Oleghe, Efewongbe Primary Care Unavailable Oleghe, Efewongbe Attending Unavailable Oleghe, Efewongbe Primary Care Unavailable Oleghe, Efewongbe Attending Unavailable Oleghe, Efewongbe Referring Unavailable Oleghe, Efewongbe Primary Care Unavailable Donal Randall Attending Unavailable Oleghe, Efewongbe Referring Unavailable Oleghe, Efewongbe Primary Care Unavailable Oleghe, Efewongbe Attending Unavailable Oleghe, Efewongbe Referring Unavailable Oleghe, Efewongbe Primary Care Unavailable Andrew Collier Attending Unavailable Oleghe, Efewongbe Referring Unavailable Oleghe, Efewongbe Primary Care Unavailable Oleghe, Efewongbe Primary Care Unavailable Andrew Collier Attending Unavailable Andrew Collier Referring Unavailable Medications Current Medications Medication Drug Class(es) Dates Sig (Normalized) Sig (Original) [id number] 200 actuat albuterol 0.09 mg/actuat metered dose inhaler (20 sources) beta2-Adrenergic Agonist Start: 08-20-2019 End: 12-30-2024 Start: 08-20-2019 End: 10-22-2022 take 1 puff(s) by inhalation every six hours Albuterol Sulfate (Proair Hfa) 90 mcg/actuation HFA aerosol inhaler Discontinued 2 PUFF INHALATION EVERY 6 HOURS 8.5 March 23, 2021 10:07am October 22, 2022 1:48pm amLODIPine 5 mg oral tablet (20 sources) Dihydropyridine Calcium Channel Mark Start: 07-26-2019 End: 01-05-2025 take 1 tablet by mouth once daily Lwbwadryka-Supndlxu-An rmoterol (13 sources) Corticosteroid, beta2-Adrenergic Agonist Start: 12-30-2024 Start: 12-22-2023 End: 12-30-2024 Ujrcphofyf-Uobwwlrn-Ducgelnd ol (Breztri Aerosphere) 160-9-4.8 mcg/actuation HFA aerosol inhaler Discontinued 2 NMA INHALATION TWICE A DAY 10.7 6 December 22, 2023 4:33pm December 30, 2024 5:16pm Start: 10-22-2022 End: 12-22-2023 Pvuulisvtp-Hvpeiuys-Pygetfvc ol (Breztri Aerosphere) 160-9-4.8 mcg/actuation HFA aerosol inhaler Discontinued 2 NMA INHALATION TWICE A DAY 10.7 6 October 22, 2022 2:47pm December 22, 2023 4:33pm Start: 10-22-2022 Budesonide-Gly copyr-Formoterol (Breztri Aerosphere) 160-9-4.8 mcg/actuation HFA aerosol inhaler Active 2 INH INHALATION TWICE A DAY 10.7 October 22, 2022 1:47pm Start: 10-22-2022 Budesonide-Gly copyr-Formoterol (Breztri Aerosphere) 160-9-4.8 mcg/actuation HFA aerosol inhaler Active 2 INH INHALATION TWICE A DAY 10.7 October 22, 2022 2:47pm Start: 10-08-2022 End: 10-22-2022 Nqztjmfbqc-Movrluqd-Zqlmqxvq ol (Breztri Aerosphere) 160-9-4.8 mcg/actuation HFA aerosol inhaler Discontinued 2 NMA INHALATION TWICE A DAY 10.7 0 October 08, 2022 12:00am October 22, 2022 2:48pm Start: 10-08-2022 End: 10-22-2022 Tndrcqzzqh-Pismgzae-Xejqwwmz ol (Breztri Aerosphere) 160-9-4.8 mcg/actuation HFA aerosol inhaler Discontinued 2 INH INHALATION TWICE A DAY 10.7 October 07, 2022 11:00pm October 22, 2022 1:48pm Start: 10-08-2022 End: 10-22-2022 Bkxgcysvjt-Iycnxbxm-Aclyqwvj ol (Breztri Aerosphere) 160-9-4.8 mcg/actuation HFA aerosol inhaler Discontinued 2 INH INHALATION TWICE A DAY 10.7 October 08, 2022 12:00am October 22, 2022 2:48pm Start: 10-08-2022 Budesonide-Gly copyr-Formoterol (Breztri Aerosphere) 160-9-4.8 mcg/actuation HFA aerosol inhaler Active 2 INH INHALATION TWICE A DAY 10.7 October 08, 2022 12:00am fluconazole 150 mg oral tablet (1 source) Azole Antifungal Start: 09-01-2024 take 2 tablets by mouth every week metoprolol tartrate 50 mg oral tablet (1 source) beta-Adrenergic Mark Start: 10-28-2024 take 1 tablet by mouth once daily rosuvastatin calcium 5 mg oral tablet (1 source) HMG-CoA Reductase Inhibitor Start: 11-26-2024 take 1 tablet by mouth once daily Completed/Discontinued Medications Medication Drug Class(es) Dates Sig (Normalized) Sig (Original) atorvastatin 40 mg oral tablet (7 sources) HMG-CoA Reductase Inhibitor Start: 07-26-2019 End: 02-25-2020 take 1 tablet by mouth once daily Atorvastatin 40 mg tablet Discontinued 40 mg PO DAILY July 26, 2019 12:00am February 25, 2020 2:49pm Budesonide-Formoter ol (14 sources) Corticosteroid, beta2-Adrenergic Agonist Start: 03-23-2021 End: 10-08-2022 Budesonide-Formoter ol (Symbicort) 160-4.5 mcg/actuation HFA aerosol inhaler Discontinued 2 NMA INHALATION TWICE A DAY 10.2 1 March 23, 2021 11:07am October 08, 2022 4:47pm Start: 03-23-2021 End: 10-08-2022 take 1 puff(s) by inhalation twice daily Budesonide-Formoterol (Symbicort) 160-4.5 mcg/actuation HFA aerosol inhaler Discontinued 2 PUFF INHALATION TWICE A DAY 10.2 March 23, 2021 10:07am October 08, 2022 3:47pm Start: 03-23-2021 End: 10-08-2022 take 1 puff(s) by inhalation twice daily Budesonide-Formoterol (Symbicort) 160-4.5 mcg/actuation HFA aerosol inhaler Discontinued 2 PUFF INHALATION TWICE A DAY 10.2 March 23, 2021 11:07am October 08, 2022 4:47pm Start: 03-23-2021 take 1 puff(s) by in halation twice daily Budesonide-Formoterol (Symbicort) 160-4.5 mcg/actuation HFA aerosol inhaler Active 2 PUFF INHALATION TWICE A DAY 10.2 March 23, 2021 11:07am Start: 07-04-2020 End: 03-23-2021 Budesonide-Formoterol (Symbi renan) 160-4.5 mcg/actuation HFA aerosol inhaler Discontinued 2 NMA INHALATION TWICE A DAY 10.2 1 July 04, 2020 1:00am March 23, 2021 11:08am Start: 07-04-2020 End: 03-23-2021 take 1 puff(s) by inhalation twice daily Budesonide-Formoterol (Symbicort) 160-4.5 mcg/actuation HFA aerosol inhaler Discontinued 2 PUFF INHALATION TWICE A DAY 10.2 July 04, 2020 12:00am March 23, 2021 10:08am Start: 07-04-2020 End: 03-23-2021 take 1 puff(s) by inhalation twice daily Budesonide-Formoterol (Symbicort) 160-4.5 mcg/actuation HFA aerosol inhaler Discontinued 2 PUFF INHALATION TWICE A DAY 10.2 July 04, 2020 1:00am March 23, 2021 11:08am etodolac 500 mg oral tablet (4 sources) Nonsteroidal Anti-inflammatory Drug Start: 11-11-2022 End: 02-03-2024 take 1 tablet by mouth twice daily Etodolac 500 mg tablet Discontinued 500 mg PO TWICE A DAY 60 0 November 11, 2022 12:00am February 03, 2024 2:04pm 24 hr NIFEdipine 30 mg extended release oral tablet (7 sources) Dihydropyridine Calcium Channel Mark Start: 07-26-2019 End: 07-26-2019 take 1 tablet by mouth once daily Nifedipine 30 mg tablet extended release Discontinued 30 mg PO DAILY July 26, 2019 12:00am July 26, 2019 3:33pm terbinafine 250 mg oral tablet (1 source) Allylamine Antifungal Start: 02-03-2024 End: 09-01-2024 take 1 tablet by mouth once daily Terbinafine Hcl 250 mg tablet Discontinued 250 mg PO daily February 03, 2024 12:00am September 01, 2024 4:39pm Problems Active Problems Problem Classification Problem Date Documented Date Episodic/Chronic Asthma (7 sources) Asthma; Translations: [Unspecified asthma, uncomplicated] 08-20-2019 Chronic Cancer of prostate (10 sources) Malignant tumor of prostate; Translations: [Malignant neoplasm of prostate] Onset: 06-02-2024 03-09-2020 Chronic Comment on above: Robotic radical pros tatectomy September 2013 Chronic obstructive pulmonary disease and bronchiectasis (7 sources) Chronic obstructive lung disease; Translations: [Chronic obstructive pulmonary disease, unspecified] 10-23-2022 Chronic Disorders of lipid metabolism (7 sources) Hyperlipidemia; Translations: [Hyperlipidemia, unspecified] 03-09-2020 Chronic Essential hypertension (9 sources) Hypertensive disorder; Translations: [Essential (primary) hypertension] 03-09-2020 Chronic Immunity disorders (6 sources) Polyclonal gammopathy; 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] 03-13-2022 Chronic Immunizations and screening for infectious disease (1 source) Needs influenza immunization; Translations: [Encounter for immunization] 03-03-2024 Episodic Malaise and fatigue (1 source) Fatigue; Translations: [Other fatigue] 09-03-2023 Episodic Nonspecific chest pain (2 sources) Chest pain; Translations: [Chest pain, unspecified] Onset: 02-15-2025 02-16-2025 Episodic Osteoarthritis (5 sources) Osteoarthritis of left hip joint; Translations: [Unilateral primary osteoarthritis, left hip] 11-11-2022 Chronic Other acquired deformities (3 sources) Leg length inequality; Translations: [Unequal limb length (acquired), unspecified site] 11-11-2022 Episodic Other acquired deformities (2 sources) Unequal limb length (acquired), unspecified site; Translations: [Unequal leg length (acquired)] 11-11-2022 Episodic Other non-traumatic joint disorders (9 sources) Hip pain; Translations: [Pain in left hip] 10-22-2022 Episodic Other non-traumatic joint disorders (2 sources) Pain in left hip; Translations: [Pain in joint, pelvic region and thigh] 10-22-2022 Episodic Other non-traumatic joint disorders (9 sources) Pain in left knee; Translations: [Mechanical pain of left knee] 11-11-2022 Episodic Other skin disorders (1 source) Change in nail appearance; Translations: [Other nail disorders] 03-03-2024 Episodic Residual codes; unclassified (4 sources) Pain; Translations: [Pain, unspecified] 11-11-2022 Episodic Screening and history of mental health and substance abuse codes (7 sources) Tobacco use and exposure - finding; Translations: [Personal history of nicotine dependence] 12-31-2022 Episodic Spondylosis; intervertebral disc disorders; other back problems (9 sources) Degeneration of lumbar intervertebral disc; Translations: [Other intervertebral disc degeneration, lumbar region] 11-11-2022 Chronic Past or Other Problems Problem Classification Problem Date Documented Da te Episodic/Chronic Diabetes mellitus without complication (7 sources) Prediabetes; Translations: [Prediabetes] Onset: 09-01-2024 07-16-2022 Episodic Mycoses (1 source) Tinea unguium; Translations: [Tinea unguium] Onset: 11-15-2024 Episodic Other screening for suspected conditions (not mental disorders or infectious disease) (19 sources) Patient encounter status; Translations: [Encounter for screening for malignant neoplasm of colon] Onset: 09-01-2024 07-16-2022 Episodic Results Test Name Value Interpretation Reference Range Facility Internal Medicine Office Vis todd 03-09-2025 Internal Medicine Office Visit [facility] Internal Medicine [facility] [facility] [place], [place] [address] OFFICE VISIT Date of Service: 03/09/25 MR#: [id number] Acct: [id number] Name: SAMI SEQUEIRA Rep #: [id number] : 1960 Provider: Dr. Bernabe cramer MD Age/Sex: 65/M Location: [facility] Status: Signed with Addenda ADDENDUM by Carline Cosby on 03/09/25 at 0814 Office Procedure Documentation entered by Carline Cosby 03/09/25 08:14: Immunizations Flucelvax [id number] (PF) 45 mcg (15 mcg x 3)/0.5 mL IM syringe Performing Provider: Bernabe Middleton MD Performing Location: [facility] Administered by: Carline Cosby on 03/09/25 08:13 Dose Route Admin Location Dispensed Lot Number Expiration Date Package NDC NDC Planning Official 0.5 mL IM Left Arm (SQ) 0.5 mL [id number] 09/04/25 25682-539-04 [id number] [employer] VIS Given Date VIS Provided VIS Publication Date 03/09/25 Single Vaccine 24 Eligibility Eligibility Date Funding Source Not Applicable Administration Comments: yuko injection patient tolerated well Date cc: * Signed Intake Vital Signs 09/01/24 16:40 02/08/25 12:14 03/09/25 07:34 Height 5 ft 6 in 5 ft 6 in 5 ft 6 in Weight: 170 lb BMI 27.4 BP 140/92 H Blood Pressure Location Rt brachial Position Sitting Respiration 16 Pulse 111 H Pulse Source Monitor Temp 98.2 F Temp Source Temporal Pulse Oximetry (%) 96 Oxygen Delivery Method room air Intake Visit Reasons: 6 M FU Chief Complaint: Follow-up chronic conditions. Health Social Work Professor Required: No Accompanied by: Self Is patient in pain?: No Allergies No Known Allergies Allergy (Verified 03/09/25 07:31) Medications ???Medication ???Instructions ???Recorded ???Confirmed ???Type albuterol sulfate 90 mcg/actuation 2 puff inhalation Q6H PRN 03/09/25 Rx aerosol inhaler shortness of breath or wheezing #8.5 grams budesonide 160 mcg-glycopyr 9 2 inh inhalation BID #10.7 grams 0 12/30/24 03/09/25 Rx mcg-formot 4.8 mcg/actuation HFA inhaler (Breztri Aerosphere) amlodipine 5 mg tablet 5 mg PO DAILY #90 tabs 03/09/25 Rx Nurse's Note: discuss medication also needs refill [facility] Medical History Screening for cardiovascular condition Flu vaccine need Change in nail appearance Health care maintenance Fatigue History of tobacco use Encounter for screening for malignant neoplasm of lung Wears glasses Wears dentures Cancer History of Holter monitoring Former smoker COPD (chronic obstructive pulmonary disease) Chronic left hip pain Hx of adenomatous polyp of colon Screening for colon cancer Prediabetes Polyclonal gammopathy Benign colonic polyp Anxiety Hyperlipemia Hypertension Surgical History History of cardiac catheterization History of colonoscopy History of prostatectomy Family History Father Diabetes Other Asthma Hyperlipemia Hypertension Social History Smoking Status: Former smoker quit date: 04/28/12 pack-years: 30 Tobacco: How many years used: 30 how long ago did patient quit smokin second hand exposure: Yes alcohol intake: current alcohol intake frequency: a few times a month details: occasionally substance use type: does not use what type of physical activity do you participate in: other details: physical job HPI HPI Chief Complaint: Follow-up chronic conditions. Details: SAMI SEQUEIRA, is a 65-year-old male with HTN, hyperlipidemia, and mild coronary artery plaque, presenting for medication concerns. The patient reports diffuse cramping in his chest and legs while taking rosuvastatin 5 mg, describing one episode as severe and frightening. He notes the cramps resolve when he stops the medication, which he discontinued approximately 1 month ago. He called the nurse line during the severe episode and was advised to go to the ER, but he did not go. He is open to trying a different cholesterol medication but is unwilling to restart rosuvastatin. He is currently taking amlodipine 5 mg every morning. He does not routinely check his blood pressure at home. He reports new grooves in his fingernails, particularly the left thumb, that have developed over the past few months and become more noticeable when his hands are dirty from work. He was previously referred to dermatology for this issue and was prescribed oral medication that improved his toenails, but the fingernail changes have worsened. He continues to use Breztri inhaler for breath (more content not included)... Normal [facility] 12 Lead EKGon 02-08-2025 12 Lead EKG [facility] Cardiovascular Services [address] [place] [address] 12 Lead EKG 02/08/25 1219 MR#: [id number] Acct: [id number] Name: SAMI SEQUEIRA Rep #: [id number] : 1960 65 From: Donal Randall MD Attending Dr: Status: DEP ER Ordering Dr: Ubaldo Anand DO Date: 02/08/25 Location: ED Sex: M AA Admitted: Test Reason : CP Blood Pressure : */* mmHG Vent. Rate : 73 BPM Atrial Rate : 73 BPM P-R Int : 190 ms QRS Dur : 90 ms QT Int : 376 ms P-R-T Axes : 77 55 47 degrees QTcB Int : 414 ms Normal sinus rhythm Normal ECG Confirmed by PRAKASH OSBORN, DONAL ([id number]), editorial writer BEHZAD LABOY ([id number]) on 02/09/2025 10:53:04 AM Referred By: TB Confirmed By: DONAL RANDALL MD 02/09/25 1053 Date Donal Randall MD CC: Dr. Bernabe Middleton MD; Dr. Ubaldo Anand DO Signed Normal [facility] Absolute lymphocyte countOrd ered By: Ubaldo Anand on 02-08-2025 Lymphocytes Auto (Unsp spec) [#/Vol] 1.67 10*3/uL 0.83-4.51 [facility] Absolute neutrophil countOrd ered By: Ubaldo Anand on 02-08-2025 Neutrophils (Bld) [#/Vol] 2.0 10*3/uL 2.0-7.7 [facility] Activated partial thrombopla stin time (aPTT) in platelet poor plasma by coagulation aOrdered By: Ubaldo Anand on 02-08-2025 aPTT Coag (PPP) [Time] 29.6 s 24.1-36.2 [facility] Anion gap in Serum or Plasma Ordered By: Ubaldo Anand on 02-08-2025 Anion gap [Moles/Vol] 10 mmol/L 09-09 [facility] Automated lymphocyte count a s percentage of total leukocytesOrdered By: Ubaldo Anand on 02-08-2025 Lymphocytes/100 WBC Auto (Unsp spec) 39.7 % [facility] BUN/creatinine ratioOrdered By: Ubaldo Anand on 02-08-2025 Urea nitrogen/Creatinine [Mass ratio] 19.5 mg/mg 02-14 [facility] Basic Metabolic Profile (BMP )on 02-08-2025 BUN/CRE 19.5 RATIO Normal 02-14 [facility] Comment on above: Performed By: #### L 500.2500, L503.7505 #### [facility] [address] [place], [address] Calcium [Mass/Vol] 8.9 mg/dL Normal 7.6-11.0 [facility] Comment on above: Performed By: #### L 500.2500, L503.7505 #### [facility] [address] [place], [address] Chloride [Moles/Vol] 105 mmol/L Normal 98-108 [facility] Comment on above: Performed By: #### L 500.2500, L503.7505 #### [facility] [address] [place], [address] CO2 [Moles/Vol] 23.6 mmol/L Normal 21.0-32.0 [facility] Comment on above: Performed By: #### L 500.2500, L503.7505 #### [facility] [address] [place], [address] Creatinine [Mass/Vol] 0.87 mg/dL Normal 0.70-1.20 [facility] Comment on above: Performed By: #### L 500.2500, L503.7505 #### [facility] [address] [place], [address] ECRCL 85.84 ml/min Normal 50-250 [facility] Comment on above: Performed By: #### L 500.2500, L503.7505 #### [facility] [address] [place], [address] GAP 10 Normal 5-15 [facility] Comment on above: Performed By: #### L 500.2500, L503.7505 #### [facility] [address] [place], [address] GFR/1.73 sq M.predicted among non-blacks MDRD (S/P/Bld) [Vol rate/Area] 97 mL/min/{1.73_m2} Normal >60 [facility] Comment on above: Result Comment: mL/m in/1.73m2 CKD-EPI Creatinine Equation (2020) Performed By: #### L 500.2500, L503.7505 #### [facility] [address] [place], [address] Glucose [Mass/Vol] 92 mg/dL Normal 70-99 [facility] Comment on above: Performed By: #### L 500.2500, L503.7505 #### [facility] [address] [place], [address] Potassium [Moles/Vol] 4.1 mmol/L Normal 3.3-5.1 [facility] Comment on above: Performed By: #### L 500.2500, L503.7505 #### [facility] [address] [place], [address] Sodium [Moles/Vol] 139 mmol/L Normal 133-145 [facility] Comment on above: Performed By: #### L 500.2500, L503.7505 #### [facility] [address] [place], [address] Urea nitrogen [Mass/Vol] 17 mg/dL Normal 4-19 [facility] Comment on above: Performed By: #### L 500.2500, L503.7505 #### [facility] [address] [place], [address] Basophil percentageOrdered B y: Ubaldo Anand on 02-08-2025 Basophils/100 WBC (Bld) 0.5 % 0-1 [facility] CBC W/Diff, Automatedon 01-26 Absolute Lymph 1.67 X10 3/uL Normal 0.83-4.51 [facility] Comment on above: Performed By: #### L 300.4310, L300.3900, L100.0100, L501.4021 #### [facility] [address] [place], [address] Absolute Neut 2.0 X10 3/uL Normal 2.0-7.7 [facility] Comment on above: Performed By: #### L 300.4310, L300.3900, L100.0100, L501.4021 #### [facility] [address] [place], [address] Basophils/100 WBC (Bld) 0.5 % Normal 0-1 [facility] Comment on above: Performed By: #### L 300.4310, L300.3900, L100.0100, L501.4021 #### [facility] [address] [place], [address] Eosinophils/100 WBC (Bld) 2.6 % Normal 0-5 [facility] Comment on above: Performed By: #### L 300.4310, L300.3900, L100.0100, L501.4021 #### [facility] [address] [place], [address] Erythrocyte distribution width (RBC) [Ratio] 13.0 % Normal 11.6-14.6 [facility] Comment on above: Performed By: #### L 300.4310, L300.3900, L100.0100, L501.4021 #### [facility] [address] [place], [address] Hematocrit (Bld) [Volume fraction] 36.4 % Low 40-54 [facility] Comment on above: Performed By: #### L 300.4310, L300.3900, L100.0100, L501.4021 #### [facility] [address] [place], [address] Hemoglobin (Bld) [Mass/Vol] 12.0 g/dL Low 13.0-16.5 [facility] Comment on above: Performed By: #### L 300.4310, L300.3900, L100.0100, L501.4021 #### [facility] [address] [place], [address] IG% 0.200 Normal 0.0-0.9 [facility] Comment on above: Result Comment: IG% - Immature Granulocytes (promyelocytes, myelocytes and metamyelocytes) > 1% indicates that a LEFT SHIFT is Present. Performed By: #### L 300.4310, L300.3900, L100.0100, L501.4021 #### [facility] [address] [place], [address] Lymphocytes/100 WBC (Bld) 39.7 % Normal 19-41 [facility] Comment on above: Performed By: #### L 300.4310, L300.3900, L100.0100, L501.4021 #### [facility] [address] [place], [address] MCH (RBC) [Entitic mass] 28.6 pg Normal 27.0-32.0 [facility] Comment on above: Performed By: #### L 300.4310, L300.3900, L100.0100, L501.4021 #### [facility] [address] [address], [address] MCHC (RBC) [Mass/Vol] 33.0 g/dL Normal 32-36 [facility] Comment on above: Performed By: #### L 300.4310, L300.3900, L100.0100, L501.4021 #### [facility] [address] [place], [address] MCV (RBC) [Entitic vol] 86.7 fL Normal 80-94 [facility] Comment on above: Performed By: #### L 300.4310, L300.3900, L100.0100, L501.4021 #### [facility] [address] [place], [address] Monocytes/100 WBC (Bld) 9.5 % Normal 0-10 [facility] Comment on above: Performed By: #### L 300.4310, L300.3900, L100.0100, L501.4021 #### [facility] [address] [place], [address] Neutrophils/100 WBC (Bld) 47.5 % Normal 47-70 [facility] Comment on above: Performed By: #### L 300.4310, L300.3900, L100.0100, L501.4021 #### [facility] [address] [place], [address] Nucleated RBC (Bld) [#/Vol] 0 10*3/uL Normal 0-5 [facility] Comment on above: Performed By: #### L 300.4310, L300.3900, L100.0100, L501.4021 #### [facility] [address] [place], [address] Platelet mean volume (Bld) [Entitic vol] 9.0 fL Normal 6.2-12.0 [facility] Comment on above: Performed By: #### L 300.4310, L300.3900, L100.0100, L501.4021 #### [facility] [address] [place], [address] Platelets (Bld) [#/Vol] 241 10*3/uL Normal 150-450 [facility] Comment on above: Performed By: #### L 300.4310, L300.3900, L100.0100, L501.4021 #### [facility] [address] [place], [address] RBC (Bld) [#/Vol] 4.20 10*6/uL Low 4.6-6.2 [facility] Comment on above: Performed By: #### L 300.4310, L300.3900, L100.0100, L501.4021 #### [facility] [address] [place], [address] RDW SD 41.0 fl Normal 35.1-43.9 [facility] Comment on above: Performed By: #### L 300.4310, L300.3900, L100.0100, L501.4021 #### [facility] [address] [place], [address] WBC (Bld) [#/Vol] 4.2 10*3/uL Low 4.4-11.0 [facility] Comment on above: Performed By: #### L 300.4310, L300.3900, L100.0100, L501.4021 #### [facility] [address] [place], [address] CTA Chest W/WO Contraston CTA Chest W/WO Contrast [facility] Imaging Services [address] [place] [address] CTA Chest W/WO Contrast MR#: [id number] Acct: [id number] Name: SAMI SEQUEIRA Rep #: [id number] : 1960 M 65 From: Brown gaines MD PCP: Dr. Bernabe Middleton MD Status: REG ER Study: CTA Chest W/WO Contrast Date of Exam: 02/08/25 Exam# [id number] Ordering Dr: Ubaldo Anand DO PROCEDURE: CTA CHEST W/WO CONTRAST 02/08/2025 REASON FOR EXAM: L CHEST PAIN WITH INSPIRIATON TECHNIQUE: Procedure Code: CTCTACHWW Modality: CT Procedure: CTA CHEST W/WO CONTRAST Multiplanar Sagittal and Coronal images were obtained. 3D post processing was performed CONTRAST: Isovue 370 VOLUME: 100 mL One or more dose reduction techniques were used (e.g., Automated exposure control, adjustment of the mA and/or kV according to patient size, use of iterative reconstruction technique). RADIATION DOSE SUMMARY: CTDlvol: 11.8 mGy DLP: 360.83 mGycm COMPARISON: Prior chest radiograph done earlier in the day. FINDINGS: Hardware: None Lymph nodes: No abnormal mediastinal or hilar lymph nodes are seen. Heart: The heart is nonenlarged. Mild degree of coronary artery calcification. Thoracic Aorta: Mild atherosclerotic calcific plaques of the aortic arch. Pulmonary Vessels: No evidence of pulmonary embolism. Lungs and Airways: No pulmonary infiltrate or mass lesion is seen. Pleura: No pleural effusion. Upper Abdomen: Findings suggestive of a 2.9 cm cyst in the upper anterior aspect of the left kidney. Bones: Degenerative changes of the thoracic spine. CT/CTA Chest W/WO Contrast IMPRESSION: No evidence of pulmonary embolism. Mild coronary artery calcification. No pulmonary infiltrate or mass is seen. Reading Location: [facility] CC: Dr. Bernabe Middleton MD; Dr. Ubaldo Anand DO Medication Manager: Signed Normal [facility] Carbon dioxide, total [Moles /volume] in Central venous bloodOrdered By: Ubaldo Anand on 02-08-2025 CO2 [Moles/Vol] 23.6 mmol/L 21.0-32.0 [facility] Chest PA and Lateralon 02-08 Chest PA and Lateral [facility] Imaging Services [address] [place] [place] [address] Chest PA and Lateral MR#: [id number] Acct: [id number] Name: SAMI SEQUEIRA Rep #: [id number] : 1960 M 65 From: Brown gaines MD PCP: Dr. Bernabe Middleton MD Status: REG ER Study: Chest PA and Lateral Date of Exam: 02/08/25 Exam# [id number] Ordering Dr: Ubaldo Anand DO PROCEDURE: CHEST PA AND LATERAL 02/08/2025 REASON FOR EXAM: CHEST PAIN TECHNIQUE: Procedure Code: RADCXR Modality: DX Procedure: CHEST PA AND LATERAL COMPARISON: None FINDINGS: Hardware: EKG electrodes are seen. Heart: The heart size is normal. Mediastinum: The mediastinal contour is unremarkable. Lungs: The lungs are clear. Bones: Degenerative changes are identified within the thoracic spine. RAD/Chest PA and Lateral IMPRESSION: NO ACUTE FINDINGS. Reading Location: [place] [address] CC: Dr. Bernabe Middleton MD; Dr. Ubaldo Anand DO Medication Manager: Signed Normal [facility] Chloride assayOrdered By: Rene Anand on 02-08-2025 Chloride [Moles/Vol] 105 mmol/L 98-108 [facility] Electrocardiogram reportOrde red By: Donal Randall on 02-08-2025 EKG study [facility] Cardiovascular Services [address] [address] 12 Lead EKG 02/08/25 1219 MR#: [id number] Acct: [id number] Name: SAMI SEQUEIRA Rep #:[id number] : 1960 65 From: Donal Randall MD Attending Dr: Status: DEP E R Ordering Dr: Ubaldo Anand DO Date: Location: ED Sex: M AA Admitted: Test Reason : CP Blood Pressure : */* mmHG Vent. Rate : 73 BPM Atrial Rate : 73 BPM P-R Int : 190 ms QRS Dur : 90 ms QT Int : 376 ms P-R-T Axes : 77 55 47 degrees QTcB Int : 414 ms Normal sinus rhythm Normal ECG Confirmed by PRAKASH OSBORN, DONAL ([id number]), editorial writer TINGBEHZAD AGUSTIN ([id number]) on 0:53:04 AM Referred By: TB Confirmed By: DONAL RANDALL MD 02/09/25 1053 Date _ Donal Randall MD CC: Dr. Bernabe Middleton MD; Dr. Ubaldo Anand DO ~ Signed [facility] Work Phone: Emergency Department Summary on 02-08-2025 Emergency Department Summary [facility] Medical Records Department [address] [place] [address] Emergency Department Summary 02/08/25 MR#: [id number] Acct: [id number] Name: SAMI SEQUEIRA Rep #: [id number] : 1960 65 From: Ubaldo Anand DO PCP: Dr. Bernabe Middleton MD Status:REG ER Location: ED HPI History of Present Illness Chief Complaint: Chest Pain Narrative Narrative: Patient is a 65-year-old male with a past medical history of COPD, prediabetic, anxiety, hypertension, hyperlipidemia, lung cancer who presented to the emergency department with a chief complaint of chest pain. Patient states that this morning when he woke up as he was getting ready folic he developed left-sided chest pain he states that this was worse when he tried to take a deep breath. 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 He states that he called the on-call nurse through his primary care physician and they advised him to come to the emergency department to be further evaluated. [facility] Medical History Screening for cardiovascular condition Flu vaccine need Change in nail appearance Health care maintenance Fatigue History of tobacco use Encounter for screening for malignant neoplasm of lung Wears glasses Wears dentures Cancer History of Holter monitoring Former smoker COPD (chronic obstructive pulmonary disease) Chronic left hip pain Hx of adenomatous polyp of colon Screening for colon cancer Prediabetes Polyclonal gammopathy Benign colonic polyp Anxiety Hyperlipemia Hypertension Home Medications ???Medication ???Instructions ???Recorded ???Last Taken ???Type fluconazole 150 mg tablet 300 mg PO QWEEK 09/01/24 Unknown H istory metoprolol tartrate 50 mg tablet 50 mg PO QDAY #1 TAB 10/28/24 Unkn own Rx rosuvastatin 5 mg tablet 5 mg PO QDAY #30 tabs 11/26/24 Unk nown Rx albuterol sulfate 90 mcg/actuation 2 puff inhalation Q6H PRN Unknown Rx aerosol inhaler shortness of breath or wheezing #8.5 grams budesonide 160 mcg-glycopyr 9 2 inh inhalation BID #10.7 grams 0 12/30/24 Unknown Rx mcg-formot 4.8 mcg/actuation HFA inhaler (Breztri Aerosphere) amlodipine 5 mg tablet 5 mg PO DAILY #90 tabs 01/05/25 Un known Rx Allergy/AdvReac Type Severity Reaction Status Date / Time No Known Allergies Allergy Verified 02/08/25 12:13 Family History Father Diabetes Other Asthma Hyperlipemia Hypertension Surgical History History of cardiac catheterization History of colonoscopy History of prostatectomy Social History Smoking Status: Former smoker quit date: 04/28/12 pack-years: 30 Tobacco: How many years used: 30 how long ago did patient quit smokin second hand exposure: Yes alcohol intake: current alcohol intake frequency: a few times a month details: occasionally substance use type: does not use what type of physical activity do you participate in: other details: physical job ROS ROS ED ROS Narrative Constitutional: Denies any fevers or chills Eyes: Denies double vision Cardiovascular: Complains of chest pain as noted above denies palpitations Respiratory: Denies coughing wheezing complains of pain with inspiration as noted above Abdomen: Denies abdominal pain nausea vomiting diarrhea : Denies any urinary symptoms Neurological: Denies numbness, weakness, tingling Musculoskeletal: Denies back pain Skin: Denies any rashes or lesions EXAM Physical Exam Narrative Exam Narrative: General: Patient is lying in bed rest comfortably did not appear to be in acute distress Head: Atraumatic, normocephalic Eyes: PERRL bilaterally, EOMI bilateral, no conjunctival injection noted Neck: Soft, supple, trachea midline Cardiovascular: Regular rate and rhythm Respiratory: Clear to auscultation bilaterally Abdomen: No tenderness to palpation, soft, nondistended Extremities: Radial pulses +2/4 in the bilateral extremities, +5/5 strength noted in the bilateral upper and lower extremities Neurological: Patient following commands knew that he was at [facility] the year is 2024 Skin: Warm, dry, intact no rashes or lesions noted Const Vital Signs: 02/08/25 12:14 02/08/25 12:53 02/08/25 13:12 Temperature 97.3 F L Temperature Source Temporal Pulse Rate 78 69 Respiratory Rate 18 Blood Pressure 129/76 H 133/81 H Blood Pressure Mean 93 98 Pulse Ox 96 Oxygen Delivery Method Room Air Room Air 02/08/25 14:00 02/08/25 15:00 Temperature Temperature Source Pulse Rate 64 75 Respiratory Rate 1 (more content not included)... Normal [facility] Eosinophil percentageOrdered By: Ubaldo Anand on 02-08-2025 Eosinophils/100 WBC (Bld) 2.6 % 0-5 [facility] Erythrocyte distribution wid th ratioOrdered By: Ubaldo Anand on 02-08-2025 Erythrocyte distribution width (RBC) [Ratio] 13.0 % 11.6-14.6 [facility] Erythrocyte distribution wid th standard deviationOrdered By: Ubaldo Anand on 02-08-2025 Erythrocyte distribution width (RBC) [Ratio] 41.0 fl 35.1-43.9 [facility] Glomerular filtration rate ( GFR) estimation/1.73 sq m using serum, plasma, or whole bOrdered By: Ubaldo Anand on 02-08-2025 GFR/1.73 sq M.predicted among non-blacks MDRD (S/P/Bld) [Vol rate/Area] 97 mL/min/{1.73_m2} >60 [facility] Comment on above: mL/min/1.73m2 CKD-EP I Creatinine Equation (2020) Hematocrit Auto (Bld) [Volum e fraction]Ordered By: Ubaldo Anand on 02-08-2025 Hematocrit (Bld) [Volume fraction] 36.4 % Low 40-54 [facility] Hemoglobin measurementOrdere d By: Ubaldo Anand on 02-08-2025 Hemoglobin (Bld) [Mass/Vol] 12.0 g/dL Low 13.0-16.5 [facility] Immature granulocytes/100 WB C Auto (Bld)Ordered By: Ubaldo Anand on 02-08-2025 Immature granulocytes/100 WBC (Bld) 0.200 % 0.0-0.9 [facility] Comment on above: IG% - Immature Granu locytes (promyelocytes, myelocytes and metamyelocytes) > 1% indicates that a LEFT SHIFT is Present. International normalized rat io (INR) calculationOrdered By: Ubaldo Anand on 02-08-2025 INR Coag (Bld) [Relative time] 1.1 {INR} [facility] L501.4021on 02-08-2025 Trop T High Sen < 6 Normal <=22 [facility] Comment on above: Performed By: #### L 300.4310, L300.3900, L100.0100, L501.4021 #### [facility] [address] [place] [address]. [place], [address] MCV (mean corpuscular volume ) determinationOrdered By: Ubaldo Anand on 02-08-2025 MCV (RBC) [Entitic vol] 86.7 fL 80-94 [facility] Mean corpuscular hemoglobin (MCH) determinationOrdered By: Ubaldo Anand on 02-08-2025 MCH (RBC) [Entitic mass] 28.6 pg 27.0-32.0 [facility] Mean corpuscular hemoglobin concentration (MCHC) determinationOrdered By: Ubaldo Anand on 02-08-2025 MCHC (RBC) [Mass/Vol] 33.0 g/dL 32-36 [facility] Mean platelet volume determi nationOrdered By: Ubaldo Anand on 02-08-2025 Platelet mean volume (Bld) [Entitic vol] 9.0 fL 6.2-12.0 [facility] Monocyte percentageOrdered B y: Ubaldo Anand on 02-08-2025 Monocytes/100 WBC (Bld) 9.5 % 0-10 [facility] Natriuretic peptide.B prohor pankaj N-Terminal [Mass/volume] in Serum or PlasmaOrdered By: Ubaldo Anand on 02-08-2025 Natriuretic peptide.B prohormone N-Terminal [Mass/Vol] < 36 pg/mL <900 [facility] Comment on above: Heart Failure Unlike ly: < 300 pg/mLHeart Failure Likely< 50 Years: > 450 pg/mL50-75 Years: > 900 pg/mL>75 Years: > 1800 pg/mL Neutrophil percentageOrdered By: Ubaldo Anand on 02-08-2025 Neutrophils/100 WBC (Bld) 47.5 % 47-70 [facility] Nucleated red blood cell per centageOrdered By: Ubaldo Anand on 02-08-2025 Nucleated RBC/100 WBC (Bld) [Ratio] 0 % 0-5 [facility] Partial Thromboplast Timeon 02-08-2025 aPTT Coag (Bld) [Time] 29.6 s Normal 24.1-36.2 [facility] Comment on above: Performed By: #### L 300.4310, L300.3900, L100.0100, L501.4021 #### [facility] [address], [address] Platelet countOrdered By: Rene Anand on 02-08-2025 Platelets (Bld) [#/Vol] 241 10*3/uL 150-450 [facility] Potassium measurement (mass/ volume)Ordered By: Ubaldo Anand on 02-08-2025 Potassium (Unsp spec) [Mass/Vol] 4.1 mmol/L 3.3-5.1 [facility] Pro- Brain NATRIURETIC PEPTI Dyana 02-08-2025 proBNP < 36 Normal <=900 [facility] Comment on above: Result Comment: Hear t Failure Unlikely: < 300 pg/mL Heart Failure Likely < 50 Years: > 450 pg/mL 50-75 Years: > 900 pg/mL >75 Years: > 1800 pg/mL Performed By: #### L 500.2500, L503.7505 #### [facility] [address] [place], [address] Prothrombin Time w/INRon INR Coag (PPP) [Relative time] 1.1 {INR} Normal [facility] Comment on above: Performed By: #### L 300.4310, L300.3900, L100.0100, L501.4021 #### [facility] [address] [place], [address] PT Coag (PPP) [Time] 14.0 s Normal 11.7-14.9 [facility] Comment on above: Performed By: #### L 300.4310, L300.3900, L100.0100, L501.4021 #### [facility] [address] [place], [address] Prothrombin timeOrdered By: Ubaldo Anand on 02-08-2025 PT Coag (PPP) [Time] 14.0 s 11.7-14.9 [facility] RBC Auto (Bld) [#/Vol]Ordere d By: Ubaldo Anand on 02-08-2025 RBC (Bld) [#/Vol] 4.20 10*6/uL Low 4.6-6.2 [facility] Serum creatinine measurement (mass/volume)Ordered By: Ubaldo Anand on 02-08-2025 Creatinine [Mass/Vol] 0.87 mg/dL 0.70-1.20 [facility] Serum glucose measurement (m ass/volume)Ordered By: Ubaldo Anand on 02-08-2025 Glucose [Mass/Vol] 92 mg/dL 70-99 [facility] Serum or plasma calcium jennifer urement (mass/volume)Ordered By: Ubaldo Anand on 02-08-2025 Calcium [Mass/Vol] 8.9 mg/dL 7.6-11.0 [facility] Serum or plasma urea nitroge n measurement (mass/volume)Ordered By: Ubaldo Anand on 02-08-2025 Urea nitrogen [Mass/Vol] 17 mg/dL 4-19 [facility] Sodium levelOrdered By: Sil Anand on 02-08-2025 Sodium [Moles/Vol] 139 mmol/L 133-145 [facility] Troponin T HS 2 HRon 025 Trop T High Sen < 6 Normal <=22 [facility] Comment on above: Performed By: #### L 499.0042 #### [facility] [address] [place], [place], [address] Troponin T HS 4 HRon 025 Trop T High Sen Normal <=22 [facility] Comment on above: Result Comment: Canc elled via OM: Order cancelled - Patient discharged Performed By: #### L 499.0043 ####[facility] [id number] [place], [place], [address] Troponin T.cardiac [Mass/vol ume] in Serum or Plasma by High sensitivity methodOrdered By: Ubaldo Anand on 02-08-2025 Troponin T.cardiac High sensitivity method [Mass/Vol] < 6 ng/L <22 [facility] Troponin T.cardiac High sensitivity method [Mass/Vol] < 6 ng/L <22 [facility] White blood cell (WBC) count Ordered By: Ubaldo Anand on 02-08-2025 WBC (Bld) [#/Vol] 4.2 10*3/uL Low 4.4-11.0 [facility] Coronary Angiography CTon Coronary Angiography CT [facility] Imaging Services [address] [place] [address] 11/01/24 1644 MR#: [id number] Acct: [id number] Name: SAMI SEQUEIRA Rep #: [id number] : 1960 64 From: Donal Randall MD PCP: Dr. Bernabe Middleton MD Status:REG REF Y Location: CT Calcium Scoring Date of Study:: 11/01/24 Indications Indications: Screening Coronary Calcium Scoring: High-resolution Computed Tomographic imaging of the chest was performed on [11/01/24], with particular attention paid to the coronary arteries. Images from the examination were analyzed for the presence and extent of coronary artery calcification , using coronary calcium quantification software. The patient tolerated the procedure well and there were no complications. The results of the coronary calcification analysis are provided below. Findings Coronary Artery Left Main (LM): 0 Left Anterior Descending (LAD): 176 Left Circumflex (LCX): 0 Right Coronary Artery (RCA): 1.3 Total Agatston Score: 177.3 Percentile Rankin-75% Calcium Scoring Interpretation: Different methods to categorize the overall amount of coronary plaque. Overall amount CAC SIS Visual of coronary plaque P1 Mild -100 <2 1-2 vessels with mild amount of plaque P2 Moderate 101-300 3-4 1-2 vessels with moderate amount, 3 vessels with mild amount of plaque P3 Severe 301-999 5-7 3 vessels with moderate amount, 1 vessel with severe amount of plaque P4 Extensive >1000 >8 2-3 vessels with severe amount of plaque Calcium Score: Mild: 1-2 vessels w/mild amount of plaque Conclusion: Mild plaque in one vessel 11/01/24 1646 Date Donal Randall MD Cosigner Signature (if applicable): Date CC: Dr. Donal Randall MD; Dr. Bernabe Middleton MD Signed Normal [facility] Limited Chest CT Cardiac Onl yon 11-01-[address] Cardiac Only [facility] Imaging Services [address] [place] [address] Cardiac Only MR#: [id number] Acct: [id number] Name: SAMI SEQUEIRA Rep #: [id number] : 1960 M 64 From: Leandro Drummond PCP: Dr. Bernabe Middleton MD Status: REG REF Study: Limited Chest CT Cardiac Only Date of Exam: Exam# [id number] Ordering Dr: Bernabe Middleton MD PROCEDURE: LIMITED CHEST CT CARDIAC ONLY 11/01/2024 REASON FOR EXAM: CARDIAC RISK ASSESSMENT TECHNIQUE: CT for coronary artery calcium scoring. One or more dose reduction techniques were used (e.g., Automated exposure control, adjustment of the mA and/or kV according to patient size, use of iterative reconstruction technique). RADIATION DOSE SUMMARY: CTDlvol: 12.19 mGy DLP: 219.42 mGycm COMPARISON: None. CT/Limited Chest CT Cardiac Only IMPRESSION: Limited imaging of the lungs demonstrates no acute process. No pleural effusion or pneumothorax is seen in visualized areas. No adenopathy is noted. The visualized upper abdomen demonstrates no significant abnormality. Reading Location: [address] CC: Dr. Bernabe Middleton MD Medication Manager: Signed Normal [facility] AST(SGOT)on 09-14-2024 AST [Catalytic activity/Vol] 27 U/L Normal <=37 [facility] Comment on above: Performed By: #### L 501.4405, L501.4100 ####[facility] [address] [place], [place], [address] Alanine Aminotransferas (SGP T)on 09-14-2024 ALT [Catalytic activity/Vol] 18 U/L Normal <=46 [facility] Comment on above: Performed By: #### L 501.4405, L501.4100 ####[facility] [id number] [facility] [place], [place], [address] Internal Medicine Office Vis itodevonte 09-01-2024 Internal Medicine Office Visit [facility] [place], [place] [address] OFFICE VISIT Date of Service: 09/01/24 MR#: [id number] Acct: [id number] Name: SAMI SEQUEIRA Rep #: [id number] : 1960 Provider: Dr. Bernabe cramer MD Age/Sex: 64/M Location: [facility] Status: Signed Intake Vital Signs 03/03/24 17:44 05/20/24 16:06 09/01/24 16:40 Height 5 ft 6 in 5 ft 6 in 5 ft 6 in Weight: 164 lb BMI 26.4 BP 126/84 H Blood Pressure Location Rt brachial Position Sitting Respiration 18 Pulse 78 Pulse Source Monitor Temp 97.3 F L Temp Source Temporal Pulse Oximetry (%) 93 Oxygen Delivery Method room air Intake Visit Reasons: 6 M FU Chief Complaint: Follow-up chronic conditions. Health Social Work Professor Required: No Is patient in pain?: No Allergies No Known Allergies Allergy (Verified 09/01/24 16:28) Medications ???Medication ???Instructions ???Recorded ???Confirmed ???Type albuterol sulfate 90 mcg/actuation 2 puff inhalation Q6H PRN 09/01/24 Rx aerosol inhaler shortness of breath or wheezing #8.5 grams budesonide 160 mcg-glycopyr 9 2 inh inhalation BID #10.7 grams 0 12/22/23 09/01/24 Rx mcg-formot 4.8 mcg/actuation HFA inhaler (Breztri Aerosphere) amlodipine 5 mg tablet 5 mg PO DAILY #90 tabs 08/19/24 Rx fluconazole 150 mg tablet 300 mg PO QWEEK 09/01/24 09/01/24 History PFSH Medical History (Updated 09/01/24 @ 17:[address] Bernabe Middleton MD) Screening for cardiovascular condition Flu vaccine need Change in nail appearance Health care maintenance Fatigue History of tobacco use Encounter for screening for malignant neoplasm of lung Wears glasses Wears dentures Cancer History of Holter monitoring Former smoker COPD (chronic obstructive pulmonary disease) Chronic left hip pain Hx of adenomatous polyp of colon Screening for colon cancer Prediabetes Polyclonal gammopathy Benign colonic polyp Anxiety Hyperlipemia Hypertension Surgical History History of cardiac catheterization History of colonoscopy History of prostatectomy Family History Father Diabetes Other Asthma Hyperlipemia Hypertension Social History Smoking Status: Former smoker (Quit smoking 2012. ) quit date: 04/28/12 pack-years: 30 Tobacco: How many years used: 30 how long ago did patient quit smokin second hand exposure: Yes alcohol intake: current alcohol intake frequency: a few times a month details: occasionally substance use type: does not use what type of physical activity do you participate in: other details: physical job HPI HPI Chief Complaint: Follow-up chronic conditions. Details: SAMI SEQUEIRA, is a 64 M who presents to the office today for follow-up of his chronic conditions. History of hypertension, blood pressure today at 126/84 mmHg. Currently on amlodipine which he reports compliance with. No chest pain, palpitation or shortness of breath. He however would like to get calcium scoring. History of hyperlipidemia. Chronic history of asthma currently on Breztri. No recent exacerbations. 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 He state s that there are other things that he could do at work and not expose himself to this. This sounds reasonable. Other chronic conditions are stable. Continues to follow-up with oncology ROS Const Constitutional: No body ache, chills, excessive sweating, fatigue, fever(s), frequent falls, headache(s), snoring, weakness, sleep problems or change in appetite Eyes Eyes: No blurry vision, change in vision, floaters, visual disturbances, eye pain or Light sensitivity ENT ENT: No abnormal hearing, ear or mastoid pain, tinnitus, balance problems, nosebleed/epistaxis , nasal congestion, headache(s), neck pain or sore throat Resp Respiratory: No cough, excessive phlegm production, pain on inspiration, shortness of breath, snoring or wheezing Cardio Cardiology: No chest pain at rest, chest pain with exertion, excessive sweating, shortness of breath, dyspnea on exertion, lightheadedness, orthopnea or palpitations Gastro GI: No abdominal pain, change in bowel habits, constipation, cramping, diarrhea, nausea/dyspepsia or vomiting Genitourinary Male: No burning urination, painful urination, urinary incontinence or urinary frequency Musc Musculoskeletal: No abnormal gait, joint pain, back pain, limited range of motion, neck pain or numbness Skin Skin: No dry skin, redness, excessive hair growth, yellowing of the eye, lesions, itchy eyes, rash or wounds Neuro Neurol (more content not included)... Normal [facility] Oncology Visit Reporton 04-29 Oncology Visit Report [facility] [place] [address] OFFICE VISIT Date of Service: 05/20/24 1603 MR#: [id number] Acct: [id number] Name: SAMI SEQUEIRA Rep #: [id number] : 1960 From: Andrew Collier MD Age/Sex: 64/M Location: [facility] [place] [facility] Status: Signed HPI Subjective Date of Service 05/20/24 Chief Complaint Prostate cancer follow-up History of Present Illness 63-year-old male with history of prostate cancer seen February 2020 to establish care. April 2013 was noted to have an elevated PSA June 2013 prostate adenocarcinoma Shickley 6 confirmed on biopsy. September 2013 underwent robotic assisted laparoscopic radical prostatectomy: Prostate adenocarcinoma Jose score 6 involving both lobes with perineural invasion but no lymphovascular invasion, no extraprostatic extension, margins were free of tumor bilateral seminal vesicles were free of tumor. Dissected lymph nodes were all negative for metastatic cancer. Care was at cancer treatment centers [facility] in [place]. Following surgery patient went on surveillance. Patient reported incontinence PFSH Medical History Flu vaccine need Change in nail appearance Health care maintenance Fatigue History of tobacco use Encounter for screening for malignant neoplasm of lung Wears glasses Wears dentures Cancer History of Holter monitoring Former smoker COPD (chronic obstructive pulmonary disease) Chronic left hip pain Hx of adenomatous polyp of colon Screening for colon cancer Prediabetes Polyclonal gammopathy Benign colonic polyp Anxiety Hyperlipemia Hypertension Surgical History History of cardiac catheterization History of colonoscopy History of prostatectomy Family History Father Diabetes Other Asthma Hyperlipemia Hypertension Social History Smoking Status: Former smoker (Quit smoking 2012. ) quit date: 04/28/12 pack-years: 30 Tobacco: How many years used: 30 how long ago did patient quit smokin second hand exposure: Yes alcohol intake: current alcohol intake frequency: a few times a month details: occasionally substance use type: does not use what type of physical activity do you participate in: other details: physical job ROS Constitutional Constitutional: Reports systems reviewed and no addt'l complaints, except as documented; Denies anorexia, fatigue, fever(s), night sweats or weight loss Eyes Eyes: Reports systems reviewed and no addt'l complaints, except as documented; Denies change in vision ENT HEENT: Reports systems reviewed and no addt'l complaints, except as documented; Denies mouth lesions Cardiovascular Cardiovascular: Reports systems reviewed and no addt'l complaints, except as documented; Denies chest pain with activity or edema Respiratory/Chest Respiratory/Chest: Reports systems reviewed and no addt'l complaints, except as documented, wheezing and other Details: Occasional wheezing ; Denies cough or dyspnea on exertion Gastrointestinal Gastrointestinal: Reports systems reviewed and no addt'l complaints, except as documented; Denies change in bowel habits, hematochezia or melena Genitourinary Genitourinary: Reports systems reviewed and no addt'l complaints, except as documented, urinary incontinence and other Details: Urine incontinence is occasional, urge. ; Denies erectile dysfunction Musculoskeletal Musculoskeletal: Reports systems reviewed and no addt'l complaints, except as documented, back pain and other Details: Chronic back pain Integumentary Integumentary: Reports systems reviewed and no addt'l complaints, except as documented; Denies rash Neurologic Neurologic: Reports systems reviewed and no addt'l complaints, except as documented; Denies focal weakness or paresthesias Psychiatric Psychiatric: Reports systems reviewed and no addt'l complaints, except as documented Endocrine Endocrinology: Denies fatigue or flushing Hematologic/Lymphat ic Hematologic/Lymphat ic: Reports systems reviewed and no addt'l complaints, except as documented; Denies easy bleeding, easy bruising or lymphadenopathy Allergic/Immunologi c Allergic/Immunologi c: Reports systems reviewed and no addt'l complaints, except as documented Intake Vital Signs 03/03/24 17:44 05/20/24 16:04 05/20/24 16:06 Height 5 ft 6 in 5 ft 6 in 5 ft 6 in Weight: 74.389 kg 75.353 kg BMI 26.4 26.8 BP 120/72 128/88 H Blood Pressure Location Lt brachial Lt brachial Position Sitting Sitting Respiration 16 16 Pulse 94 85 Pulse Source Monitor Monitor Temp 97.1 F L 98.0 F Temperature Source Temporal Artery Pulse Oximetry (%) 96 96 (more content not included)... Normal [facility] PSA,Total- Diagnosticon 04-28 PSA, DIAGNOSTIC < 0.01 Normal 0.0-4.0 [facility] Comment on above: Result Comment: This test was performed using the TPSA assay method for the [employer] chemistry system. Values obtained with different assay methods cannot be used interchangably. When changing PSA assays in the course of monitoring a patient, additional sequential testing should be carried out to confirm baseline values. Performed By: #### L [id number] ####[facility] [id number] [place], [place], [address] Albumin Elph [Mass/Vol]Order ed By: Andrew Collier on 04-23-2023 Albumin [Mass/Vol] 3.7 g/dL 2.9-4.4 [facility] Interpretation of serum or p lasma protein pattern by immunofixation (narrative resultOrdered By: Andrew Collier on 04-23-2023 Protein Fractions Immunofixation Andrea [Interp] Not Observed g/dL Not Observed [facility] No Panel InformationOrdered By: Andrew Collier on 04-23-2023 Addendum Document Comment . [facility] Comment on above: Protein electrophore sis scan will follow via computer,mail, or tub wash operator delivery.Performed at: [address] [id number] Director: Siddharth Phillips PhD, Phone: [phone] Serum [id number] measu rement by electrophoresisOrdered By: Andrew Collier on 04-23-2023 Alpha 1 globulin Elph [Mass/Vol] 0.2 g/dL 0.0-0.4 [facility] Alpha 1 globulin Elph [Mass/Vol] 0.6 g/dL 0.4-1.0 [facility] Serum globulin measurement ( mass/volume)Ordered By: Andrew Collier on 04-23-2023 Globulin (S) [Mass/Vol] 3.7 g/dL 2.2-3.9 [facility] Serum or plasma IgA measurem ent (mass/volume)Ordered By: Andrew Collier on 04-23-2023 IgA [Mass/Vol] 403 mg/dL 61-437 [facility] Serum or plasma IgG measurem ent (mass/volume)Ordered By: Andrew Collier on 04-23-2023 IgG [Mass/Vol] 1676 mg/dL 603-1613 [facility] Serum or plasma IgM measurem ent (mass/volume)Ordered By: Andrew Collier on 04-23-2023 IgM [Mass/Vol] 102 mg/dL 20-172 [facility] Serum or plasma beta globuli n measurement by electrophoresis (mass/volume)Ordered By: Andrew Collier on 04-23-2023 Beta globulin Elph [Mass/Vol] 1.2 g/dL 0.7-1.3 [facility] Serum or plasma gamma globul in measurement by electrophoresis (mass/volume)Ordered By: Andrew Collier on 04-23-2023 Gamma globulin Elph [Mass/Vol] 1.7 g/dL 0.4-1.8 [facility] Serum or plasma immunoelectr ophoresis interpretation (nominal result)Ordered By: Andrew Collier on 04-23-2023 Interpretation IEP [Interp] Comment . [facility] Comment on above: No monoclonality det ected. Thin prep Papanicolaou smear with manual screeningOrdered By: Andrew Collier on 04-23-2023 Thin prep Papanicolaou smear with manual screening 1.1 0.7-1.7 [facility] Total protein bloodOrdered B y: Andrew Collier on 04-23-2023 Protein [Mass/Vol] 7.4 g/dL 6.0-8.5 [facility] No Panel InformationOrdered By: Andrew Collier on 04-04-2023 Prostate Specific Antigen Total < 0.01 ng/mL 0.0-4.0 [facility] Comment on above: This test was perfor med using the TPSA assay method for the[employer] chemistry system. Values obtained with differentassay methods cannot be used interchangably.When changing PSA assays in the course of monitoring apatient, additional sequential testing should be carriedout to confirm baseline values. Absolute lymphocyte countOrd ered By: Luke Cai on 07-26-2022 Lymphocytes Auto (Unsp spec) [#/Vol] 2.25 10*3/uL 0.83-4.51 [facility] Basophil percentageOrdered B y: Luke Cai on 07-26-2022 Basophils/100 WBC (Bld) 0.5 % 0-1 [facility] Bilirubin [Mass/Vol] 0.40 mg/dL 0.20-1.00 [facility] Comment on above: For patients on eltr ombopag therapy, use of Dimension [place] TBIL is not recommended. Chloride [Moles/Vol] 105 mmol/L 98-107 [facility] Cholesterol [Mass/Vol] 190 mg/dL <200 [facility] Comment on above: <200 mg/dL Desirable 200-240 mg/dL Borderline >240 mg/dL High Risk Eosinophils/100 WBC (Bld) 1.5 % 0-5 [facility] Glucose [Mass/Vol] 93 mg/dL 74-106 [facility] Neutrophils (Bld) [#/Vol] 1.4 10*3/uL 2.0-7.7 [facility] Neutrophils/100 WBC (Bld) 33.5 % 47-70 [facility] Potassium [Moles/Vol] 4.0 mmol/L 3.5-5.1 [facility] Protein [Mass/Vol] 8.1 g/dL 6.4-8.2 [facility] Sodium [Moles/Vol] 138 mmol/L 136-145 [facility] Triglyceride [Mass/Vol] 45 mg/dL <199 [facility] Comment on above: The drugs N-Acetylcy steine and Metamizole may falsely depress this assay.Serum Triglycerides Reference Interval Normal <150 mg/dL Borderline high 150 - 199 mg/dL High 200 - 499 mg/dL Very High > or = 500 mg/dL WBC (Bld) [#/Vol] 4.1 10*3/uL 4.4-11.0 [facility] Blood erythrocytes count (nu mber/volume)Ordered By: Luke Cai on 07-26-2022 RBC (Bld) [#/Vol] 4.66 10*6/uL 4.6-6.2 [facility] Blood hemoglobin measurement (mass/volume)Ordered By: Luke Cai on 07-26-2022 Hemoglobin (Bld) [Mass/Vol] 12.8 g/dL 13.0-16.5 [facility] Blood lymphocytes/100 leukoc ytesOrdered By: Luke Cai on 07-26-2022 Lymphocytes/100 WBC (Bld) 55.0 % 19-41 [facility] Blood monocytes/100 leukocyt esOrdered By: Luke Cai on 07-26-2022 Monocytes/100 WBC (Bld) 9.5 % 0-10 [facility] Blood platelet mean volumeOr dered By: Luke Cai on 07-26-2022 Platelet mean volume (Bld) [Entitic vol] 9.4 fL 6.2-12.0 [facility] Determination of erythrocyte mean corpuscular volume (MCV)Ordered By: Luke Cai on 07-26-2022 MCV (RBC) [Entitic vol] 87.3 fL 80-94 [facility] Hematocrit Auto (Bld) [Volum e fraction]Ordered By: Luke Cai on 07-26-2022 Hematocrit (Bld) [Volume fraction] 40.7 % 40-54 [facility] Laboratory - Chemistry and C hemistry - challengeOrdered By: Luke Cai on 07-26-2022 ALP [Catalytic activity/Vol] 76 U/L 45-117 [facility] ALT [Catalytic activity/Vol] 23 U/L 16-61 [facility] CO2 [Moles/Vol] 27.0 mmol/L 21.0-32.0 [facility] Globulin (S) [Mass/Vol] 4.6 g/dL 2.2-4.2 [facility] Urea nitrogen/Creatinine [Mass ratio] 20.8 mg/mg 10-20 [facility] Laboratory - Hematology and Cell countsOrdered By: Luke Cai on 07-26-2022 Erythrocyte distribution width (RBC) [Entitic vol] 40.6 fL 35.1-43.9 [facility] Erythrocyte distribution width (RBC) [Ratio] 12.7 % 11.6-14.6 [facility] Immature granulocytes/100 WBC (Bld) 0.000 % 0.0-0.9 [facility] Comment on above: IG% - Immature Granu locytes (promyelocytes, myelocytes and metamyelocytes) > 1% indicates that a LEFT SHIFT is Present. MCH (RBC) [Entitic mass] 27.5 pg 27.0-32.0 [facility] Nucleated RBC/100 WBC (Bld) [Ratio] 0 % 0-5 [facility] MCHC Auto (RBC) [Mass/Vol]Or dered By: Luke Cai on 07-26-2022 MCHC (RBC) [Mass/Vol] 31.4 g/dL 32-36 [facility] No Panel InformationOrdered By: Luke Cai on 07-26-2022 Estimated GFR (MDRD) Amer 108 mL/min >60 [facility] Comment on above: GFR Calc Estimated GFR (MDRD) Non-Af Amer 90 mL/min >60 [facility] Comment on above: Non- GFR Calc Thyroid Stimulating Hormone (TSH) 0.65 uIU/mL 0.358-3.74 [facility] Platelets bldOrdered By: Ann Cai on 07-26-2022 Platelets (Bld) [#/Vol] 267 10*3/uL 150-450 [facility] Serum or plasma albumin jennifer urement (mass/volume)Ordered By: Luke Cai on 07-26-2022 Albumin [Mass/Vol] 3.5 g/dL 3.2-5.0 [facility] Serum or plasma albumin/glob ulin mass ratioOrdered By: Luke Cai on 07-26-2022 Albumin/Globulin [Mass ratio] 0.8 {ratio} 0.9-2.4 [facility] Serum or plasma calcium jennifer urement (mass/volume)Ordered By: Luke Cai on 07-26-2022 Calcium [Mass/Vol] 9.2 mg/dL 8.5-10.1 [facility] Serum or plasma cholesterol in HDL measurement (mass/volume)Ordered By: Luke Cai on 07-26-2022 Cholesterol in HDL [Mass/Vol] 63 mg/dL >40 [facility] Comment on above: The drugs N-Acetylcy steine and Metamizole may falsely depress this assay. Reference Range HDL <40 mg/dL Low HDL Cholesterol HDL >or= 60 mg/dL High HDL Cholesterol Serum or plasma cholesterol in VLDL measurement (mass/volume)Ordered By: Luke Cai on 07-26-2022 Cholesterol in VLDL [Mass/Vol] 9 mg/dL 5-40 [facility] Serum or plasma creatinine m easurement (mass/volume)Ordered By: Luke Cai on 07-26-2022 Creatinine [Mass/Vol] 0.92 mg/dL 0.70-1.30 [facility] Comment on above: The validity of the calculated GFR & GFRAA in patients over 70 years has not been determined. Clinical correlation is essential. Serum or plasma low density lipoprotein (LDL) cholesterol measurement (mass/volume)Ordered By: Luke Cai on 07-26-2022 Cholesterol in LDL [Mass/Vol] 118 mg/dL 0-130 [facility] Serum or plasma urea nitroge n measurement (mass/volume)Ordered By: Luke Cai on 07-26-2022 Urea nitrogen [Mass/Vol] 19 mg/dL 7-18 [facility] Thin prep Papanicolaou smear with manual screeningOrdered By: Luke Cai on 07-26-2022 Thin prep Papanicolaou smear with manual screening 19 U/L 15-37 [facility] Thin prep Papanicolaou smear with manual screening 6 5-15 [facility] Whole blood hemoglobin A1c/t otal hemoglobin ratio (mass fraction)Ordered By: Luke Cai on 07-26-2022 HbA1c (Bld) [Mass fraction] 6.1 % 3.8-5.6 [facility] Comment on above: Normal < 5.7 % Predi abetic 5.7 - 6.4 % Diabetic >or= 6.5 % Please note range changes. Absolute lymphocyte counton 02-01-2022 Lymphocytes Auto (Unsp spec) [#/Vol] 2.54 10*3/uL 0.83-4.51 [facility] Work Phone: Basophil percentageon 2021 Basophils/100 WBC (Bld) 0.6 % 0-1 [facility] Work Phone: [phone] Bilirubin [Mass/Vol] 0.20 mg/dL 0.20-1.00 [facility] Work Phone: Comment on above: For patients on eltr ombopag therapy, use of Dimension [place] TBIL is not recommended. Chloride [Moles/Vol] 105 mmol/L 98-107 [facility] Work Phone: Eosinophils/100 WBC (Bld) 3.3 % 0-5 [facility] Work Phone: [phone] Glucose [Mass/Vol] 73 mg/dL 74-106 [facility] Work Phone: [phone] Neutrophils (Bld) [#/Vol] 1.9 10*3/uL 2.0-7.7 [facility] Work Phone: [phone] Neutrophils/100 WBC (Bld) 36.7 % 47-70 [facility] Work Phone: [phone] Potassium [Moles/Vol] 4.1 mmol/L 3.5-5.1 [facility] Work Phone: [phone] Protein [Mass/Vol] 8.5 g/dL 6.4-8.2 [facility] Work Phone: [phone] Sodium [Moles/Vol] 140 mmol/L 136-145 [facility] Work Phone: [phone] WBC (Bld) [#/Vol] 5.2 10*3/uL 4.4-11.0 [facility] Work Phone: [phone] Blood erythrocytes count (nu mber/volume)on 02-01-2022 RBC (Bld) [#/Vol] 4.61 10*6/uL 4.6-6.2 [facility] Work Phone: [phone] Blood hemoglobin measurement (mass/volume)on 02-01-2022 Hemoglobin (Bld) [Mass/Vol] 13.4 g/dL 13.0-16.5 [facility] Work Phone: Blood lymphocytes/100 leukoc yteson 02-01-2022 Lymphocytes/100 WBC (Bld) 49.0 % 19-41 [facility] Work Phone: Blood monocytes/100 leukocyt eson 02-01-2022 Monocytes/100 WBC (Bld) 10.2 % 0-10 [facility] Work Phone: Blood platelet mean volumeon 02-01-2022 Platelet mean volume (Bld) [Entitic vol] 9.6 fL 6.2-12.0 [facility] Work Phone: Determination of erythrocyte mean corpuscular volume (MCV)on 02-01-2022 MCV (RBC) [Entitic vol] 90.2 fL 80-94 [facility] Work Phone: Hematocrit Auto (Bld) [Volum e fraction]on 02-01-2022 Hematocrit (Bld) [Volume fraction] 41.6 % 40-54 [facility] Work Phone: Laboratory - Chemistry and C hemistry - challengeon 02-01-2022 ALP [Catalytic activity/Vol] 77 U/L 45-117 [facility] Work Phone: ALT [Catalytic activity/Vol] 25 U/L 16-61 [facility] Work Phone: CO2 [Moles/Vol] 27.0 mmol/L 21.0-32.0 [facility] Work Phone: Globulin (S) [Mass/Vol] 4.9 g/dL 2.2-4.2 [facility] Work Phone: Urea nitrogen/Creatinine [Mass ratio] 15.0 mg/mg 10-20 [facility] Work Phone: Laboratory - Hematology and Cell countson 02-01-2022 Erythrocyte distribution width (RBC) [Entitic vol] 42.2 fL 35.1-43.9 [facility]: Erythrocyte distribution width (RBC) [Ratio] 12.8 % 11.6-14.6 [facility] Work Phone: Immature granulocytes/100 WBC (Bld) 0.200 % 0.0-0.9 [facility] Work Phone: Comment on above: IG% - Immature Granu locytes (promyelocytes, myelocytes and metamyelocytes) > 1% indicates that a LEFT SHIFT is Present. MCH (RBC) [Entitic mass] 29.1 pg 27.0-32.0 [facility] Work Phone: Nucleated RBC/100 WBC (Bld) [Ratio] 0 % 0-5 [facility] Work Phone: MCHC Auto (RBC) [Mass/Vol]on 02-01-2022 MCHC (RBC) [Mass/Vol] 32.2 g/dL 32-36 [facility] Work Phone: No Panel Informationon 02-01 Estimated GFR (MDRD) Amer 79 mL/min >60 [facility] Work Phone: Comment on above: GFR Calc Estimated GFR (MDRD) Non-Af Amer 66 mL/min >60 [facility] Work Phone: Comment on above: Non- GFR Calc Prostate Specific Antigen Total < 0.01 ng/mL 0.0-4.0 [facility] Work Phone: Comment on above: This test was perfor med using the TPSA assay method [facility]. Values obtained with differentassay methods cannot be used interchangably.When changing PSA assays in the course of monitoring apatient, additional sequential testing should be carriedout to confirm baseline values. Platelets bldon 02-01-2022 Platelets (Bld) [#/Vol] 270 10*3/uL 150-450 [facility] Work Phone: Serum or plasma albumin jennifer urement (mass/volume)on 02-01-2022 Albumin [Mass/Vol] 3.6 g/dL 3.2-5.0 [facility] Work Phone: Serum or plasma albumin/glob ulin mass ratioon 02-01-2022 Albumin/Globulin [Mass ratio] 0.7 {ratio} 0.9-2.4 [facility] Work Phone: Serum or plasma calcium jennifer urement (mass/volume)on 02-01-2022 Calcium [Mass/Vol] 9.2 mg/dL 8.5-10.1 [facility] Work Phone: Serum or plasma creatinine m easurement (mass/volume)on 02-01-2022 Creatinine [Mass/Vol] 1.20 mg/dL 0.70-1.30 [facility] Work Phone: Comment on above: The validity of the calculated GFR & GFRAA in patients over 70 years has not been determined. Clinical correlation is essential. Serum or plasma urea nitroge n measurement (mass/volume)on 02-01-2022 Urea nitrogen [Mass/Vol] 18 mg/dL 7-18 [facility] Work Phone: Thin prep Papanicolaou smear with manual screeningon 02-01-2022 Thin prep Papanicolaou smear with manual screening 17 U/L 15-37 [facility] Work Phone: Thin prep Papanicolaou smear with manual screening 8 5-15 [facility] Work Phone: .Auto Diffon 07-31-2018 Ammonia mass conc (P) 0.40 10 3/mcL Normal 0.09-1.40 [facility] ([place]) Comment on above: Performed By: #### C BC, ADIFF, ANEU, BMP, GFR #### [address] [address] Basophils #/vol (Bld) 0.00 10 3/mcL Normal 0.00-0.27 [facility] ([place]) Comment on above: Performed By: #### C BC, ADIFF, ANEU, BMP, GFR #### [address] [address] Basophils/100 WBC (Bld) 0.5 % Normal 0.0-2.5 [facility] ([place]) Comment on above: Performed By: #### C BC, ADIFF, ANEU, BMP, GFR #### [address] [address] Eosinophils #/vol (Bld) 0.10 10 3/mcL Normal 0.00-0.65 [facility] ([place]) Comment on above: Performed By: #### C BC, ADIFF, ANEU, BMP, GFR #### [address] [address] Eosinophils/100 WBC (Bld) 3.4 % Normal 0.0-6.0 [facility] ([place]) Comment on above: Performed By: #### C BC, ADIFF, ANEU, BMP, GFR #### [address] [address] Lymphocytes #/vol (Bld) 1.70 10 3/mcL Normal 0.90-4.32 [facility] ([place]) Comment on above: Performed By: #### C BC, ADIFF, ANEU, BMP, GFR #### [address] [address] Lymphocytes/100 WBC (Bld) 44.7 % High 20.0-40.0 [facility] ([place]) Comment on above: Performed By: #### C BC, ADIFF, ANEU, BMP, GFR #### [address] [address] Monocytes/100 WBC (Bld) 11.3 % Normal 2.0-13.0 [facility] ([place]) Comment on above: Performed By: #### C BC, ADIFF, ANEU, BMP, GFR #### [address] [address] Neutrophils/100 WBC (Bld) 40.1 % Low 50.0-75.0 [facility] ([place]) Comment on above: Performed By: #### C BC, ADIFF, ANEU, BMP, GFR #### [address] [address] .GFRon 07-31-2018 GFR Non- >60 Normal [facility] ([place]) Comment on above: Result Comment: GFR Population mean for , Non- Americans Ages 20-29 = 116 mL/min/1.73 sq.m. Ages 30-39 = 107 mL/min/1.73 sq.m. Ages 40-49 = 99 mL/min/1.73 sq.m. Ages 50-59 = 93 mL/min/1.73 sq.m. Ages 60-69 = 85 mL/min/1.73 sq.m. Ages 70+ = 75 mL/min/1.73 sq.m. Chronic Kidney Disease: Less than 60 mL/min/1.73 square meters End Stage Renal Disease: Less than 15 mL/min/1.73 square meters Performed By: #### C BC, ADIFF, ANEU, BMP, GFR #### [place] [address] GFR >60 Normal [facility] ([place]) Comment on above: Result Comment: GFR Population mean for , Non- Americans Ages 20-29 = 116 mL/min/1.73 sq.m. Ages 30-39 = 107 mL/min/1.73 sq.m. Ages 40-49 = 99 mL/min/1.73 sq.m. Ages 50-59 = 93 mL/min/1.73 sq.m. Ages 60-69 = 85 mL/min/1.73 sq.m. Ages 70+ = 75 mL/min/1.73 sq.m. Chronic Kidney Disease: Less than 60 mL/min/1.73 square meters End Stage Renal Disease: Less than 15 mL/min/1.73 square meters Performed By: #### C BC, ADIFF, ANEU, BMP, GFR #### [address] [address] .NEUABSon 07-31-2018 Neutrophils #/vol (Bld) 1.50 10 3/mcL Low 2.25-8.10 [facility] ([place]) Comment on above: Performed By: #### C BC, ADIFF, ANEU, BMP, GFR #### [address] [address] BMPon 07-31-2018 Calcium mass conc 8.6 mg/dL Normal 8.4-10.1 [facility] ([place]) Comment on above: Performed By: #### C BC, ADIFF, ANEU, BMP, GFR #### [address] [address] Chloride molar conc 109 mmol/L Normal 98-110 [facility] ([place]) Comment on above: Performed By: #### C BC, ADIFF, ANEU, BMP, GFR #### [place] [id number] CO2 molar conc 27 mmol/L Normal 22-32 [facility] ([place]) Comment on above: Performed By: #### C BC, ADIFF, ANEU, BMP, GFR #### [address] [address] Creatinine mass conc 0.76 mg/dL Normal 0.60-1.40 [facility] ([place]) Comment on above: Performed By: #### C BC, ADIFF, ANEU, BMP, GFR #### [place] [address] Electrolyte Balance 7.0 mEq/L Normal 4.0-15.0 [facility] ([place]) Comment on above: Performed By: #### C BC, ADIFF, ANEU, BMP, GFR #### [place] [address] Glucose mass conc 95 mg/dL Normal 70-110 [facility] ([place] Comment on above: Performed By: #### C BC, ADIFF, ANEU, BMP, GFR #### [place] [address] Potassium molar conc 3.9 mmol/L Normal 3.5-5.0 [facility] ([place]) Comment on above: Performed By: #### C BC, ADIFF, ANEU, BMP, GFR #### [place] [address] Sodium molar conc 143 mmol/L Normal 136-145 [facility] ([place]) Comment on above: Performed By: #### C BC, ADIFF, ANEU, BMP, GFR #### [place] [id number] Urea nitrogen mass conc 9.0 mg/dL Normal 8.0-22.0 [facility] ([place]) Comment on above: Performed By: #### C BC, ADIFF, ANEU, BMP, GFR #### [place] [address] Urea nitrogen/Creatinine mass ratio 11.8 ratio Normal 10.0-22.0 [facility] ([place]) Comment on above: Performed By: #### C BC, ADIFF, ANEU, BMP, GFR #### [place] [address] CBCon 07-31-2018 Erythrocyte distribution width Ratio (RBC) 12.7 % Normal 11.5-15.5 [facility] ([place]) Comment on above: Performed By: #### C BC, ADIFF, ANEU, BMP, GFR #### [place] [address] Hematocrit Volume Fraction (Bld) 36.1 % Low 40.0-52.0 [facility] ([place] Comment on above: Performed By: #### C BC, ADIFF, ANEU, BMP, GFR #### [place] [address] Hemoglobin mass conc (Bld) 12.0 G/dL Low 13.0-17.5 [facility] ([place] Comment on above: Performed By: #### C BC, ADIFF, ANEU, BMP, GFR #### [place] [address] MCH Entitic mass (RBC) 28.2 pg Normal 27.0-33.0 [facility] ([place]) Comment on above: Performed By: #### C BC, ADIFF, ANEU, BMP, GFR #### [place] [address] MCHC mass conc (RBC) 33.3 G/dL Normal 32.0-36.0 [facility] ([place]) Comment on above: Performed By: #### C BC, ADIFF, ANEU, BMP, GFR #### [place] [address] MCV Entitic volume (RBC) 84.8 fL Normal 81.0-100.0 [facility] ([place]) Comment on above: Performed By: #### C BC, ADIFF, ANEU, BMP, GFR #### [place] [address] Platelet mean volume Entitic volume (Bld) 7.4 fL Normal 6.4-10.5 [facility] ([place]) Comment on above: Performed By: #### C BC, ADIFF, ANEU, BMP, GFR #### [place] [address] Platelets #/vol (Bld) 225 10 3/mcL Normal 150-450 [facility] ([place]) Comment on above: Performed By: #### C BC, ADIFF, ANEU, BMP, GFR #### [place] [address] RBC #/vol (Bld) 4.25 10 6/mcL Low 4.50-6.00 [facility] ([place]) Comment on above: Performed By: #### C BC, ADIFF, ANEU, BMP, GFR #### [place] [address] WBC #/vol (Bld) 3.80 10 3/mcL Low 4.50-10.80 [facility] ([place]) Comment on above: Performed By: #### C BC, ADIFF, ANEU, BMP, GFR #### [place] [address] .GFRon 06-30-2018 GFR Non- 80 ml/min/1.73sqm Normal [facility] ([place]) Comment on above: Result Comment: GFR Population mean for , Non- Americans Ages 20-29 = 116 mL/min/1.73 sq.m. Ages 30-39 = 107 mL/min/1.73 sq.m. Ages 40-49 = 99 mL/min/1.73 sq.m. Ages 50-59 = 93 mL/min/1.73 sq.m. Ages 60-69 = 85 mL/min/1.73 sq.m. Ages 70+ = 75 mL/min/1.73 sq.m. Chronic Kidney Disease: Less than 60 mL/min/1.73 square meters End Stage Renal Disease: Less than 15 mL/min/1.73 square meters Performed By: #### P SA, LIPID, CMP, GFR #### [address] [address] GFR 97 ml/min/1.73sqm Normal [facility] ([place]) Comment on above: Result Comment: GFR Population mean for , Non- Americans Ages 20-29 = 116 mL/min/1.73 sq.m. Ages 30-39 = 107 mL/min/1.73 sq.m. Ages 40-49 = 99 mL/min/1.73 sq.m. Ages 50-59 = 93 mL/min/1.73 sq.m. Ages 60-69 = 85 mL/min/1.73 sq.m. Ages 70+ = 75 mL/min/1.73 sq.m. Chronic Kidney Disease: Less than 60 mL/min/1.73 square meters End Stage Renal Disease: Less than 15 mL/min/1.73 square meters Performed By: #### P SA, LIPID, CMP, GFR #### [address] [address] CMPon 06-30-2018 Albumin mass conc 3.8 G/dL Normal 3.5-5.0 [facility] ([place]) Comment on above: Performed By: #### P SA, LIPID, CMP, GFR #### [address] [address] Albumin/Globulin mass ratio 0.9 {ratio} Low 1.1-2.5 [facility] ([place]) Comment on above: Performed By: #### P SA, LIPID, CMP, GFR #### [address] [address] ALP enzyme act/vol 72 U/L Normal 40-135 [facility] ([place]) Comment on above: Performed By: #### P SA, LIPID, CMP, GFR #### [address] [address] ALT enzyme act/vol 24 U/L Normal 10-35 [facility] ([place]) Comment on above: Performed By: #### P SA, LIPID, CMP, GFR #### [place] [address] AST enzyme act/vol 20 U/L Normal 10-40 [facility] ([place]) Comment on above: Performed By: #### P SA, LIPID, CMP, GFR #### [place] [address] Bili Total 0.4 mg/dL Normal 0.2-1.0 [facility] ([place] Comment on above: Performed By: #### P SA, LIPID, CMP, GFR #### [place] [address] Calcium mass conc 9.3 mg/dL Normal 8.4-10.2 [facility] ([place] Comment on above: Performed By: #### P SA, LIPID, CMP, GFR #### [place] [address] Chloride molar conc 102 mmol/L Normal 98-107 [facility] ([place]) Comment on above: Performed By: #### P SA, LIPID, CMP, GFR #### [place] [address] CO2 molar conc 29 mmol/L Normal 22-29 [facility] ([place]) Comment on above: Performed By: #### P SA, LIPID, CMP, GFR #### [place] [address] Creatinine mass conc 0.97 mg/dL Normal 0.70-1.30 [facility] ([place]) Comment on above: Performed By: #### P SA, LIPID, CMP, GFR #### [place] [address] Electrolyte Balance 7.0 mEq/L Normal [facility] ([place]) Comment on above: Performed By: #### P SA, LIPID, CMP, GFR #### [place] [address] Globulin mass conc (S) 4.2 G/dL Normal [facility] ([place]) Comment on above: Performed By: #### P SA, LIPID, CMP, GFR #### [place] [address] Glucose mass conc 95 mg/dL Normal 70-105 [facility] ([place]) Comment on above: Performed By: #### P SA, LIPID, CMP, GFR #### [address] [address] Potassium molar conc 4.4 mmol/L Normal 3.5-5.1 [facility] ([place]) Comment on above: Performed By: #### P SA, LIPID, CMP, GFR #### [address] [address] Protein mass conc 8.0 G/dL Normal 6.4-8.2 [facility] ([place]) Comment on above: Performed By: #### P SA, LIPID, CMP, GFR #### [address] [address] Sodium molar conc 138 mmol/L Normal 136-145 [facility] ([place] Comment on above: Performed By: #### P SA, LIPID, CMP, GFR #### [place] [address] Urea nitrogen mass conc 15 mg/dL Normal 7-18 [facility] ([place]) Comment on above: Performed By: #### P SA, LIPID, CMP, GFR #### [place] [address] Urea nitrogen/Creatinine mass ratio 15 ratio Normal 7-27 [facility] ([place]) Comment on above: Performed By: #### P SA, LIPID, CMP, GFR #### [address] [address] LIPIDon 06-30-2018 Cholesterol in HDL mass conc 56 mg/dL Normal 40-60 [facility] ([place] Comment on above: Performed By: #### P SA, LIPID, CMP, GFR #### [address] [address] Cholesterol in LDL mass conc 134 mg/dL High 0-130 [facility] ([place] Comment on above: Performed By: #### P SA, LIPID, CMP, GFR #### [address] [address] Cholesterol mass conc 207 mg/dL High 0-200 [facility] ([place]) Comment on above: Result Comment: Chol esterol Reference Interval: Less than 200 Desirable 200-239 Borderline high risk 240 and above High risk Performed By: #### P SA, LIPID, CMP, GFR #### [address] [address] Triglyceride mass conc 86 mg/dL Normal 0-150 [facility] ([place]) Comment on above: Result Comment: Trig lyceride Reference Interval: Less than 150 Normal 150-199 Borderline high risk 200-499 High risk 500 or higher Very high risk Performed By: #### P SA, LIPID, CMP, GFR #### [facility] [address] [place] [address] NM MYOCARDIAL SPECT STRESS/R ESTon 06-30-2018 NM MYOCARDIAL SPECT STRESS/REST ORIGINAL NM MYOCARDIAL SPECT STRESS/REST CLINICAL STATEMENT:SOB,CHEST PAIN ON EXERTION TECHNIQUE: Stress Protocol:Bruno protocol Time Exercised:6minutes Predicted Max HR:164 Max HR Achieved:150 Percent Max HR:91 Peak Systolic BP:222 Rate-Pressure product: 333 Radiopharmaceutical (rest): Tc-99m Sestamibi IV Dose:10.9 mCi Radiopharmaceutical (stress): Tc-99m Sestamibi IV Dose:30.9 mCi SPECT acquisition:SPECT reconstruction and reorientation into short axis, vertical and horizontal long axis planes Quantitative LVEF assessment COMPARISON:None REPORT: Poststress myocardial perfusion images showed moderate perfusion defect the at the apical inferior septal, part of apical inferior, mid inferior and basal inferior and basal inferior septal felix Resting myocardial perfusion images showed similar perfusion defect Calculated LVEF 52% with normal wall motion and wall thickening Tid 1.02 On the raw images some GI uptake at the inferior wall was noted and some diaphragmatic attenuation was noted IMPRESSION: Negative for gross ischemia or infarct imaging part of exercise nuclear stress test Above-mentioned matched perfusion defect at the RCA distribution most likely due to artifact however still suggest clinical correlation LVEF 52% Interpreted By: Payton Vides Preliminary Report By: Payton Vides Electronically Signed By: Payton Vides Dictated Date: 06/30/2018 11:46:27 AM Prelim Date: 06/30/2018 11:46:27 AM Sign Date: 06/30/2018 11:52:01 AM Normal [facility] ([place]) PSAon 06-30-2018 Protein mass conc g/dL Normal 0.00-4.00 [facility] ([place]) Comment on above: Performed By: #### P SA, LIPID, CMP, GFR #### [place] [id number] [address] [place] [id number] Vital Signs Date Time Vital Sign Value Performing Clinician Neha traore 02-08-2025 15:55-0400 Body temperature 97.8 [degF] Dr. Bernabe Middleton MD Work Phone: [facility] 02-08-2025 15:55-0400 Diastolic blood pressure 76 mm[Hg] Dr. Bernabe Middleton MD Work Phone: [facility] 02-08-2025 15:55-0400 Heart rate 64 /min Dr. Bernabe Middleton MD Work Phone: [facility] 02-08-2025 15:55-0400 Respiratory rate 18 /min Dr. Bernabe Middleton MD Work Phone: [facility] 02-08-2025 15:55-0400 SaO2% (BldA) [Mass fraction] 99 % Dr. Bernabe Middleton MD Work Phone: [facility] 02-08-2025 15:55-0400 Systolic blood pressure 129 mm[Hg] Dr. Bernabe Middleton MD Work Phone: [facility] 02-08-2025 12:14-0400 Body height 167.[address] Bernabe Middleton MD Work Phone: [facility] 02-08-2025 12:14-0400 Body mass index (BMI) [Ratio] 28 kg/m2 Dr. Bernabe Middleton MD Work Phone: [facility] 02-08-2025 12:14-0400 Body weight 78.[address] Bernabe Middleton MD Work Phone: [facility] 12-31-2022 13:22-0400 Body height 167.[address] Bernabe Middleton Work Phone: [facility] 12-31-2022 13:22-0400 Body mass index (BMI) [Ratio] 27.6 kg/m2 Dr. Bernabe Middleton Work Phone: [facility] 12-31-2022 13:22-0400 Body temperature 98.4 [degF] Dr. Bernabe Middleton Work Phone: [facility] 12-31-2022 13:22-0400 Body weight 77.[address] Bernabe Middleton Work Phone: [facility] 12-31-2022 13:22-0400 Diastolic blood pressure 90 mm[Hg] Dr. Bernabe Middleton Work Phone: [facility] 12-31-2022 13:22-0400 Heart rate 89 /min Dr. Bernabe Middleton Work Phone: [facility] 12-31-2022 13:22-0400 Respiratory rate 16 /min Dr. Bernabe Middleton Work Phone: [facility] 12-31-2022 13:22-0400 SaO2% (BldA) [Mass fraction] 94 % Dr. Bernabe Middleton Work Phone: [facility] 12-31-2022 13:22-0400 Systolic blood pressure 137 mm[Hg] Dr. Bernabe Middleton Work Phone: [facility] 11-11-2022 15:32-0400 Body mass index (BMI) [Ratio] 27.6 kg/m2 Dr. Bernabe Middleton Work Phone: [facility] 11-11-2022 15:32-0400 Body weight 77.[address] Bernabe Middleton Work Phone: [facility] 11-01-2022 09:30-0400 Body temperature 97.6 [degF] Dr. Bernabe Middleton Work Phone: [facility] 11-01-2022 09:30-0400 Diastolic blood pressure 77 mm[Hg] Dr. Bernabe Middleton Work Phone: [facility] 11-01-2022 09:30-0400 Heart rate 75 /min Dr. Bernabe Middleton Work Phone: [facility] 11-01-2022 09:30-0400 Respiratory rate 16 /min Dr. Bernabe Middleton Work Phone: [facility] 11-01-2022 09:30-0400 SaO2% (BldA) [Mass fraction] 100 % Dr. Bernabe Middleton Work Phone: [facility] 11-01-2022 09:30-0400 Systolic blood pressure 119 mm[Hg] Dr. Bernabe Middleton Work Phone: [facility] 11-01-2022 07:58-0400 Body height 167.[address] Bernabe Middleton Work Phone: [facility] 11-01-2022 07:58-0400 Body mass index (BMI) [Ratio] 26.9 kg/m2 Dr. Bernabe Middleton Work Phone: [facility] 11-01-2022 07:58-0400 Body weight 75.[address] Bernabe Middleton Work Phone: [facility] 10-22-2022 14:21-0400 Body mass index (BMI) [Ratio] 27.3 kg/m2 Dr. Bernabe Middleton Work Phone: [facility] 10-22-2022 14:21-0400 Body temperature 97.8 [degF] Dr. Bernabe Middleton Work Phone: [facility] 10-22-2022 14:21-0400 Body weight 76.[address] Bernabe Middleton Work Phone: [facility] 10-22-2022 14:21-0400 Diastolic blood pressure 8 mm[Hg] Dr. Bernabe Middleton Work Phone: [facility] 10-22-2022 14:21-0400 Heart rate 77 /min Dr. Bernabe Middleton Work Phone: [facility] 10-22-2022 14:21-0400 Respiratory rate 18 /min Dr. Bernabe Middleton Work Phone: [facility] 10-22-2022 14:21-0400 SaO2% (BldA) [Mass fraction] 95 % Dr. Bernabe Midldeton Work Phone: [facility] 10-22-2022 14:21-0400 Systolic blood pressure 134 mm[Hg] Dr. Bernabe Middleton Work Phone: [facility] 09-30-2022 10:43-0400 Body height 167.[address] Bernabe Middleton Work Phone: [facility] 09-30-2022 10:43-0400 Body mass index (BMI) [Ratio] 26.6 kg/m2 Dr. Bernabe Middleton Work Phone: [facility] 09-30-2022 10:43-0400 Body weight 74.[address] Bernabe Middleton Work Phone: [facility] 07-16-2022 16:16-0400 Body mass index (BMI) [Ratio] 27.4 kg/m2 Dr. Brenabe Middleton Work Phone: [facility] 07-16-2022 16:16-0400 Body temperature 98.1 [degF] Dr. Bernabe Middleton Work Phone: [facility] 07-16-2022 16:16-0400 Body weight 77.[address] Bernabe Middleton Work Phone: [facility] 07-16-2022 16:16-0400 Diastolic blood pressure 86 mm[Hg] Dr. Bernabe Middleton Work Phone: [facility] 07-16-2022 16:16-0400 Heart rate 90 /min Dr. Bernabe Middleton Work Phone: [facility] 07-16-2022 16:16-0400 Respiratory rate 14 /min Dr. Bernabe Middleton Work Phone: [facility] 07-16-2022 16:16-0400 SaO2% (BldA) [Mass fraction] 97 % Dr. Bernabe Middleton Work Phone: [facility] 07-16-2022 16:16-0400 Systolic blood pressure 150 mm[Hg] Dr. Bernabe Middleton Work Phone: [facility] Encounters Encounter Date Encounter Type Care Provider Facility Start: 03-09-2025 End: 03-09-2025 ambulatory Bernabe Middleton Facility:[facility] Start: 02-08-2025 End: 02-08-2025 Emergency department patient visit Dr. Ubaldo Anand DO -Emergency Department Work Phone: Start: 11-01-2024 Non-patient / Non-visit Dr. Kaiser OSBORN -[facility] Work Phone: Start: 11-01-[address] Elayne Middleton MD -Cat Scan [facility] Work Phone: Start: 11-01-2024 ambulatory Donal Randall Facility:[facility] Start: 09-14-2024 End: 09-14-2024 ambulatory Jaswant Goad PA Facility:[facility] Start: 09-01-2024 End: 09-01-2024 ambulatory Osirismichaelthea Brandonoriana Facility:[facility] Start: 05-20-2024 End: 05-20-2024 ambulatory Andrew Collier Facility:[facility] Start: 05-13-2024 End: 05-13-2024 ambulatory [facility] Facility:[facility] Start: 09-03-[address] Bernabe Middleton MD Work Phone: [facility] Start: 04-23-2023 End: 04-23-[address] Bernabe Middleton Work Phone: [facility] Work Phone: Start: 04-23-2023 End: 04-23-[address] Bernabe Middleton Work Phone: [facility]Labor[facility] Work Phone: Start: 04-04-2023 End: 04-04-[address] Bernabe Middleton Work Phone: [facility] Work Phone: Start: 04-04-2023 End: 04-04-[address] Bernabe Middleton Work Phone: [facility] Work Phone: Start: 12-31-2022 End: 12-31-[address] Bernabe Middleton Work Phone: [facility] Work Phone: Start: 12-31-2022 End: 12-31-[address] Bernabe Middleton Work Phone: [facility] Work Phone: Start: 11-11-2022 End: 11-11-[address] Bernabe Middleton Work Phone: [facility] Work Phone: Start: 11-01-2022 Non-patient / Non-visit Dr. Dewayne Middleton Work Phone: [facility] Start: 11-01-2022 End: 11-01-2022 Admission to same day surgery center Dr. Bernabe Middleton Work Phone: [facility]End[facility] Work Phone: Start: 11-01-2022 End: 11-01-[address] Bernabe Middleton Work Phone: [facility] Work Phone: Start: 10-22-2022 End: 10-22-[address] Bernabe Middleton Work Phone: [facility] Work Phone: Start: 10-08-2022 Non-patient / Non-visit Dr. Dewayne Middleton Work Phone: [facility] Start: 10-07-2022 End: 10-07-[address] Bernabe Middleton Work Phone: [facility] Work Phone: Start: 10-07-2022 End: 10-07-[address] Bernabe Middleton Work Phone: [facility]-Pulmonary Services/Neurology Start: 09-30-2022 Non-patient / Non-visit Dr. Dewayne Middleton Work Phone: [facility] Start: 07-26-2022 End: 07-26-[address] Bernabe Middleton Work Phone: [facility], [place] Start: 07-16-2022 End: 07-16-[address] Bernabe Middleton Work Phone: [facility] Start: 02-01-2022 End: 02-01-2022 ambulatory [facility] Work Phone: Start: 02-01-2022 End: 02-01-2022 Patient encounter procedure [facility] Start: 07-31-2018 End: 07-31-2018 Patient encounter procedure CHRISTINA GILMOER Facility:[facility] Start: 06-30-2018 End: 07-01-2018 Patient encounter procedure TEGAN JOSEPH Facility:[facility] Procedures Date Procedure Procedure Detail Performing Clinician Start: 02-08-2025 CT angiography of ch est with contrast Dr. Bernabe Middleton MD Work Phone: Start: 02-08-[address] Bernabe Middleton MD Work Phone: Start: 02-08-2025 Radiologic exam ches t [address] Bernabe Middleton MD Work Phone: Start: 11-01-2024 CT angiography of co ronary arteries Dr. Bernabe Middleton MD Work Phone: Start: 12-31-[address] Elayne Middleton Work Phone: Start: 11-11-2022 Plain x-ray of pelvi s and lower extremity Dr. Bernabe Middleton Work Phone: Start: 11-11-2022 Radiologic examinati on of knee Dr. Bernabe Middleton Work Phone: Start: 11-11-2022 X-ray of lumbar spin e, two or three views Dr[address] Bernabe Middleton Work Phone: Start: 11-01-[address] Elayne Middleton Work Phone: Plan of Treatment Date Care Activity Detail Author Start: 02-08-2025 [facility] Start: 02-08-2025 [facility] Start: 11-11-2022 Patient referral [facility] Work Phone: Start: 11-01-2022 Colonoscopy flx dx w/collj spec when pfrmd DIAGNOSTIC COLONOSCOPY [facility] Start: 11-01-2022 Patient discharge [facility] Start: 10-22-2022 Patient referral [facility] Work Phone: Start: 07-16-2022 Patient referral [facility] Work Phone: Colonoscopy [facility] Patient referral [facility] Work Phone: XR Hip Views [facility] Immunizations Immunization Date Immunization Notes Care Provider Alfredito linares 03-03-2024 influenza, injectabl e, madin kenny canine kidney, preservative free Dr. Bernabe Middleton MD Work Phone: [facility] 02-25-2020 influenza, injectable,quadrivalent , preservative free, pediatric [facility] Payers Date Payer Category Payer Self-pay [id number] 2018 Unknown [id number] 1960 Unknown [id number] 2.16.8 [id number] 1960 Unknown [id number] 2.16.8 [id number] Unknown [id number] 2.16.8 [id number] Unknown [id number] 2.16.8 [id number] Unknown [id number] 2.16.8 [id number] Unknown [id number] 2.16.8 [id number] Unknown [id number] 2.16.8 [id number] Unknown [id number] 2.16.8 [id number] Unknown [id number] 2.16.8 [id number] Unknown [id number] 2.16.8 [id number] Social History Date Type Detail Facility Start: 03-12-2021 End: 12-31-2022 Tobacco smoking status NHIS Unknown if ever smoked [facility] Start: 1960 Sex Assigned At Male [facility] Start: 02-08-2025 Tobacco smoking stat us NHIS Ex-smoker (finding) [facility] Sex Male [facility] Goals Date Patient Goal Desired Activity /State Mental Status Date Assessment Result Facility 11-01-2022 Cognitive function Voice/Name [facility] Work Phone: Clinical Notes 10-08-2022 to 02-08-2025 Note Date & Type Note Facility 02-08-2025 Discharge summary [facility] 02-08-2025 Discharge summary Note Date/Time February 08, 2025 3:46pm [facility] Medical Records Department [address] [address] Emergency Department Summary 02/08/25 MR#: [id number] Acct: [id number] Name: SAMI SEQUEIRA Rep #:[id number] : 1960 65 From: Ubaldo Anand DO PCP: Dr. Bernabe Middleton MD Status:R EG ER Location: ED HPI History of Present Illness Chief Complaint: Chest Pain Narrative Narrative: Patient is a 65-year-old male with a past medical history of COPD, prediabetic, anxiety, hypertension, hyperlipidemia, lung cancer who presented to the emergency department with a chief complaint of chest pain. Patient states that this morning when he woke up as he was getting ready folic he developed left-sided chest pain he states that this was worse when he tried to take a deep breath. 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 He states that he called the on-call nurse through his primary care physician and they advised him to come to the emergency department to be further evaluated. [facility] Medical History Screening for cardiovascular condition Flu vaccine need Change in nail appearance Health care maintenance Fatigue History of tobacco use Encounter for screening for malignant neoplasm of lung Wears glasses Wears dentures Cancer History of Holter monitoring Former smoker COPD (chronic obstructive pulmonary disease) Chronic left hip pain Hx of adenomatous polyp of colon Screening for colon cancer Prediabetes Polyclonal gammopathy Benign colonic polyp Anxiety Hyperlipemia Hypertension Home Medications ?Medication ?Instructions ?Recorded ?Last Taken ?Type fluconazole 150 mg tablet 300 mg PO QWEEK 09/01/24 Unk nown History metoprolol tartrate 50 mg tablet 50 mg PO QDAY #1 TAB 10/28/24 Unknown Rx rosuvastatin 5 mg tablet 5 mg PO QDAY #30 tabs Unknown Rx albuterol sulfate 90 mcg/actuation 2 puff inhalation Q 6H PRN 12/30/24 Unknown Rx aerosol inhaler shortness of breath or wheez ing #8.5 grams budesonide 160 mcg-glycopyr 9 2 inh inhalation BID #10 .7 grams 12/30/24 Unknown Rx mcg-formot 4.8 mcg/actuation HFA inhaler (Breztri Aerosphere) amlodipine 5 mg tablet 5 mg PO DAILY #90 tabs 01/05 Unknown Rx Allergy/AdvReac Type Severity Reaction Status Date / Time No Known Allergies Allergy Verified 02/08/25 12:13 Family History Father Diabetes Other Asthma Hyperlipemia Hypertension Surgical History History of cardiac catheterization History of colonoscopy History of prostatectomy Social History Smoking Status: Former smoker quit date: 04/28/12 pack-years: 30 Tobacco: How many years used: 30 how long ago did patient quit smokin second hand exposure: Yes alcohol intake: current alcohol intake frequency: a few times a month details: occasionally substance use type: does not use what type of physical activity do you participate in: other details: physical job ROS ROS ED ROS Narrative Constitutional: Denies any fevers or chills Eyes: Denies double vision Cardiovascular: Complains of chest pain as noted above denies palpitations Respiratory: Denies coughing wheezing complains of pain with inspiration as noted above Abdomen: Denies abdominal pain nausea vomiting diarrhea : Denies any urinary symptoms Neurological: Denies numbness, weakness, tingling Musculoskeletal: Denies back pain Skin: Denies any rashes or lesions EXAM Physical Exam Narrative Exam Narrative: General: Patient is lying in bed rest comfortably did not appear to be in acute distress Head: Atraumatic, normocephalic Eyes: PERRL bilaterally, EOMI bilateral, no conjunctival injection noted Neck: Soft, supple, trachea midline Cardiovascular: Regular rate and rhythm Respiratory: Clear to auscultation bilaterally Abdomen: No tenderness to palpation, soft, nondistended Extremities: Radial pulses +2/4 in the bilateral extremities, +5/5 strength noted in the bilateral upper and lower extremities Neurological: Patient following commands knew that he was at [facility] the year is 2024 Skin: Warm, dry, intact no rashes or lesions noted Const Vital Signs: 02/08/25 12:14 02/08/25 12:53 02/08/25 13:12 Temperature 97.3 F L Temperature Source Temporal Pulse Rate 78 69 Respiratory Rate 18 Blood Pressure 129/76 H 133/81 H Blood Pressure Mean 93 98 Pulse Ox 96 Oxygen Delivery Method Room Air Room Air 02/08/25 14:00 02/08/25 15:00 Temperature Temperature Source Pulse Rate 64 75 Respiratory Rate 16 Blood Pressure 145/81 H 147/90 H Blood Pressure Mean 102 109 Pulse Ox 99 Oxygen Delivery Method Room Air MDM MDM MDM Narrative Medical decision making narrative: Patient is a 65-year-old male who presented to the emergency department the chief complaint of left-sided chest pain that is worse with deep inspiration. On the differential diagnose includes but limited to ACS, pneumonia, pneumothorax, intrathoracic mass, pulmonary embolism. Once workup is obtained and reviewed he will be reevaluated patient CBC reviewed and showed a white blood count of 4.2, hemoglobin is 12, plate count was noted to be normal at 241. Patient INR normal at 1.1, PT of 14. Patient sodium is 139, potassium normal 4.1, creatinine normal 0.87. Patient'stroponin was less than 6 with a delta troponin pending. Patient EKG reviewed which showed sinus rhythm with a rate of 73 bpm the KS interval 190. Patient's proBNP was less than 36. Patient's chest x-ray reviewed by myself and by radiology showed no acute cardiopulmonary processes. I did a CTA of his chest given his history of cancer and pain that is worse with deep inspiration this was reviewed and showed no evidence of pulmonary embolism he has mild coronary artery calcification no pulmonary infiltrate or masses noted. 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 He is advisedto rotate Tylenol and ibuprofen [id number]. He is agreeable to plan all question concerns answered he is discharged home in stable condition. Lab Data Labs: Laboratory Results - last 24 hr 02/08/25 02/08/25 12:38 14:50 WBC 4.2 L RBC 4.20 L Hgb 12.0 L Hct 36.4 L MCV 86.7 MCH 28.6 MCHC 33.0 RDW Std Deviation 41.0 RDW Coeff of Dottie 13.0 Plt Count 241 MPV 9.0 Immature Gran % (Auto) 0.200 Neut % (Auto) 47.5 Lymph % (Auto) 39.7 Morton % (Auto) 9.5 Eos % (Auto) 2.6 Baso % (Auto) 0.5 Absolute Neuts (auto) 2.0 Absolute Lymphs (auto) 1.67 Nucleated RBC % 0 PT 14.0 INR 1.1 APTT 29.6 Sodium 139 Potassium 4.1 Chloride 105 Carbon Dioxide 23.6 Anion Gap 10 BUN 17 Creatinine 0.87 Estim Creat Clear Calc 85.84 Est GFR (MDRD) Non-Af 97 BUN/Creatinine Ratio 19.5 Glucose 92 Calcium 8.9 Troponin T High Sens < 6 Troponin T Hi Sens 2 Hr < 6 NT pro BNP II < 36 Radiography Diagnostic Testing: Clinical Impression(s) from Imaging Studies Chest X-Ray 02/08/25 12:28 IMPRESSION: NO ACUTE FINDINGS. Reading Location: [facility]- Chest CTA 02/08/25 13:03 IMPRESSION: No evidence of pulmonary embolism. Mild coronary artery calcification. No pulmonary infiltrate or mass is seen. Reading Location: [facility]-1 Discharge Plan Triage Chief Complaint: Chest Pain ED Provider: Ubaldo Anand Dx/Rx/DC Orders Clinical Impression: Hypertension, COPD (chronic obstructive pulmonary disease), Chest pain Prescriptions: No Action fluconazole 150 mg tablet 300 mg PO QWEEK metoprolol tartrate 50 mg tablet 50 mg PO QDAY Qty: 1 0RF rosuvastatin 5 mg tablet 5 mg PO QDAY Qty: 30 3RF albuterol sulfate 90 mcg/actuation HFA aerosol inhaler 2 puff INHALATION Q6H PRN (Reason: shortness of breath or wheezing) Qty: 8.5 3RF Breztri Aerosphere 160-9-4.8 mcg/actuation HFA aerosol inhaler 2 inh inhalation BID Qty: 10.7 6RF amlodipine 5 mg tablet 5 mg PO DAILY Qty: 90 0RF Stand Alone Forms: Work / School Excuse Primary Care Provider: Bernabe Middleton Referrals: Bernabe Middleton MD [Primary Care Provider, Internal Medicine] Activity Restrictions/Additional Instructions: Follow-up with your cardiology team in the outpatient setting. Your blood work did not show any acute findings your chest x-ray was normal and your CT did not show any blood clots in your lungs. Rotate Tylenol and ibuprofen [id number] for mild to moderate pain control when you do that she can takesomething every 3 hours. Max dose Tylenol in 24 hours 4000 mg max dose of ibuprofen in 24 hours 3200 mg. Return with worsening symptoms or other concerns Print Language: Romanian Disposition Disposition: Home, Self Care What to do if you have Problems For any increased pain, shortness of breath, bleeding, nausea or vomiting, chestpain, or any unexpected problems, contact your Primary Care Provider. Call [facility] ([phone]) or report to the closest Emergency Room. Call 911 if necessary. 02/08/25 1546 <Electronically signed by Ubaldo Anand DO> Cosigner Signature (if applicable): CC: Dr. Bernabe Middleton MD ~ Signed [facility] Work Phone: [phone]) 499-267310-14-2025 Radiology Diagnostic study note [facility] Imaging Services [address] [place], [place] [address] CTA Chest W/WO Contrast MR#: [id number] Acct: [id number] Name: SAMI SEQUEIRA Rep #: [id number] : 1960 M 65 From: Polo Ambriz MD PCP: Dr. Bernabe Middleton MD Status: R EG ER Study:CTA Chest W/WO Contrast Date of Exam: 02/08/25 Exam# [id number] Ordering Dr: Cyndy Anand DO PROCEDURE: CTA CHEST W/WO CONTRAST 02/08/2025 REASON FOR EXAM: L CHEST PAIN WITH INSPIRIATON TECHNIQUE: Procedure Code: CTCTACHWW Modality: CT Procedure: CTA CHEST W/WO CONTRAST Multiplanar Sagittal and Coronal images were obtained. 3D post processing was performed CONTRAST: Isovue 370 VOLUME: 100 mL One or more dose reduction techniques were used (e.g., Automated exposure control, adjustment of the mA and/or kV according to patient size, use of iterative reconstruction technique). RADIATION DOSE SUMMARY: CTDlvol: 11.8 mGy DLP: 360.83 mGycm COMPARISON: Prior chest radiograph done earlier in the day. FINDINGS: Hardware: None Lymph nodes: No abnormal mediastinal or hilar lymph nodes are seen. Heart: The heart is nonenlarged. Mild degree of coronary artery calcification. Thoracic Aorta: Mild atherosclerotic calcific plaques of the aortic arch. Pulmonary Vessels: No evidence of pulmonary embolism. Lungs and Airways: No pulmonary infiltrate or mass lesion is seen. Pleura: No pleural effusion. Upper Abdomen: Findings suggestive of a 2.9 cm cyst in the upper anterior aspectof the left kidney. Bones: Degenerative changes of the thoracic spine. CT/CTA Chest W/WO Contrast IMPRESSION: No evidence of pulmonary embolism. Mild coronary artery calcification. No pulmonary infiltrate or mass is seen. Reading Location: [place] [address] CC: Dr. Bernabe Middleton MD; Dr. Ubaldo Anand DO ~ Medication Manager: Signed [facility]10-14-2025 Radiology Diagnostic study note [facility] Imaging Services [address] [place], [place] [address] Chest PA and Lateral MR#: [id number] Acct: [id number] Name: SAMI SEQUEIRA Rep #: [id number] : 1960 65 From: Polo Ambriz MD PCP: Dr. Bernabe Middleton MD Status: R EG ER Study:Chest PA and Lateral Date of Exam: 02/08/25 Exam# [id number] Ordering Dr: Cyndy Anand DO PROCEDURE: CHEST PA AND LATERAL 02/08/2025 REASON FOR EXAM: CHEST PAIN TECHNIQUE: Procedure Code: RADCXR Modality: DX Procedure: CHEST PA AND LATERAL COMPARISON: None FINDINGS: Hardware: EKG electrodes are seen. Heart: The heart size is normal. Mediastinum: The mediastinal contour is unremarkable. Lungs: The lungs are clear. Bones: Degenerative changes are identified within the thoracic spine. RAD/Chest PA and Lateral IMPRESSION: NO ACUTE FINDINGS. Reading Location: [place] [address] CC: Dr. Bernabe Middleton MD; Dr. Ubaldo Anand, DO ~ Medication Manager: Signed [facility]07-07-2023 Procedure [facility] 11-01-2022 Procedure [facility]06-13-2023 [facility] assessment information available [facility] Work Phone: Evaluation note* Diagnosis Onset Date Resolution Status Screening for colon cancer a cute Hypertension chronic Prostate cancer chronic [facility] Work Phone: Evaluation note* Diagnosis Onset Date Resolution Status Screening for colon cancer a cute Hypertension chronic Prostate cancer chronic Chronic left hip pain chroni c COPD (chronic obstructive pulmonary disease) chronic Screening for colon cancer a [facility] Work Phone: Evaluation note* Diagnosis Onset Date Resolution Status Chronic left hip pain chroni c COPD (chronic obstructive pulmonary disease) chronic Screening for colon cancer a cute Leg length discrepancy acute Lumbar spondylosis acute Mechanical pain of left knee acute Osteoarthritis of left hip a cute Encounter for screening for malignant neoplasm of lung acute History of tobacco use [facility] Work Phone: Evaluation note* Diagnosis Onset Date Resolution Status Encounter for screening for malignant neoplasm of lung acute History of tobacco use acute [facility] Work Phone: History and physical note Author Cedric Correa [facility] November 01, 2022 8:50am Note Date/Time November 01, 2022 8:43a m [facility] Medical Records Department [address] [place] [id number] History & Physical Exam 11/01/22 0840 MR#: [id number] Acct: [id number] Name: SAMI SEQUEIRA Rep #:[id number] : 1960 62 From: Cedric Correa MD PCP: Dr. Bernabe Middleton MD Status:R [facility] Location: [address] - General General Date of Service: 11/01/22 Chief Complaint: Personal history of colon polyps HPI Narrative SAMI SEQUEIRA, is a 62 M who presents for screening colonoscopy today. He had aprevious colonoscopy performed in [facility] March 07, 2017 and had a polyp resected at that time. He presents via open access today. He denies any abdominal pain. No bright red blood per rectum or melena. He states that he has had a heart catheterization. He notes some COPD. He has had prostate cancer that was treated with resection. [facility] Medical History (Updated 10/31/22 @ 09:51 by Monica Castro) Anxiety Benign colonic polyp Cancer Chronic left hip pain COPD (chronic obstructive pulmonary disease) Former smoker History of Holter monitoring Hx of adenomatous polyp of colon Hyperlipemia Hypertension Polyclonal gammopathy Prediabetes Screening for colon cancer Wears dentures Wears glasses Home Medications albuterol sulfate 90 mcg/actuation aerosol inhaler (ProAir HFA) 2 puff inhalation Q6H PRN shortness of breath or wheezing #8.5 grams 10/22/22 [Rx Last Taken Unknown] amlodipine 5 mg tablet 5 mg PO DAILY #90 tabs 10/22/22 [Rx Last Taken Unknown] budesonide 160 mcg-glycopyr 9 mcg-formot 4.8 mcg/actuation HFA inhaler (Breztri Aerosphere) 2 inh inhalation BID #10.7 grams 10/22/22 [Rx Last Taken Unknown] Allergy/AdvReac Type Severity Reaction Status Date / Time No Known Allergies Allergy Verified 10/31/22 09:43 Family History Father Diabetes Other Asthma Hyperlipemia Hypertension Surgical History (Updated 10/31/22 @ 09:51 by Monica Castro) History of cardiac catheterization History of colonoscopy History of prostatectomy Social History Smoking Status: Former smoker quit date: 04/28/12 Tobacco: How many years used: 15 second hand exposure: No alcohol intake: current alcohol intake frequency: a few times a month details: occasionally substance use type: does not use what type of physical activity do you participate in: other details: physical job ROS Constitutional Constitutional: Reports systems reviewed and no addt'l complaints, except as documented Cardiovascular Cardiovascular: Denies chest pain Respiratory/Chest Respiratory/Chest: Denies shortness of breath at rest Gastrointestinal Gastrointestinal: Denies abdominal pain, change in bowel habits, hematochezia ormelena Vital Signs Vital Signs Vital Signs: 11/01/22 07:58 11/01/22 07:58 Temperature 98.4 F Temperature Source Temporal Pulse Rate 77 Respiratory Rate 16 Respiratory Pattern Normal Blood Pressure 143/80 H Blood Pressure Mean 101 Blood Pressure Source Monitor Blood Pressure Position Semi-Fowlers Blood Pressure Location Left Arm Pulse Ox 96 Oxygen Delivery Method Room Air Weight Weight: 166 lb 7.184 oz Body Mass Index (BMI) 26.9 Physical Exam Const alert, oriented x3 and no apparent distress General Appearance: cooperative and comfortable Eyes General Eye: normal appearance of both eyes Neck General: normal visual inspection Chest inspection of chest normal Resp Effort and Inspection: able to speak in complete sentences and symmetric chest movement Auscultation: clear to auscultation bilaterally Cardio regular rate and regular rhythm GI soft to palpation, non-tender and non-distended Extremity no calf tenderness Neuro oriented x3 Psych thought process normal Assessment & Plan Assessment/Plan (1) Screening for colon cancer: PLAN: 62-year-old gentleman presents for a surveillance colonoscopy with possible biopsy or polypectomy as indicated. He presents via open access. He is aware of the technique, benefit, risk, alternatives. He has had an opportunity to ask and have questions answered. We will proceed as noted. Cedric Correa M.D., F.A.C.S. 11/01/22 0850 <Electronically signed by Cedric Correa MD> Cosigner Signature (if applicable): CC: Dr. Bernabe Middleton MD; Dr. Cedric Correa MD~ Signed [facility] Work Phone: Hospital Discharge instructionsAdditional Instructions Follow-up with your cardiology team in the outpatient setting. Your blood work did not show any acute findings your chest x-ray was normal and your CT did not show any blood clots in your lungs. Rotate Tylenol and ibuprofen [id number] for mild to moderate pain control when you do that she can take something every 3 hours. Max dose Tylenol in 24 hours 4000 mg max dose of ibuprofen in 24 hours 3200 mg. Return with worsening symptoms or other concernsWM[facility] Work Phone: Reason for referral (narrative)No reason for referral information availableWMount Carmel Health System Work Phone: Summary Purpose Family History No Family History Records Found Relationship Condition Age at Onset Recorded Date/T basilia Not Specified Hyperlipidemia Unknown Hypertension Unknown Asthma Unknown father Diabetes mellitus Unknown Advance Directives No Advanced Directives Records Found Advance Directive Response Recorded Date/ Time Living Will No October 19, 2015 12:28pm Power of Production Officer No October 18 12:28pm Advance Directive Response Recorded Date/ Time Name of Medical Power of Production Officer MATY HUA October 31, 2022 9:44am Living Will Yes October 31, 2022 9 :44am Power of Production Officer Yes October 31, 2022 9:44am Advance Directive Response Recorded Date/ Time Living Will Yes October 31, 2022 8 :44am Power of Production Officer Yes October 31, 2022 8:44am Advance Directive Response Recorded Date/ Time Do you have a Healthcare Power of Production Officer? No February 08, 2025 12:54pm Chief Complaint and Reason for Visit Chief Complaint E-ORDER Chief Complaint Re-Establish Care Amb Documentation DYSPNEA DYSPNEA Reason for Visit Screening for colon cancer Hypertension Prostate cancer Chief Complaint Re-Establish Care Amb Documentation DYSPNEA DYSPNEA FOLLOW UP Reason for Visit Screening for colon cancer Hypertension Prostate cancer Chronic left hip pain COPD (chronic obstructive pulmonary disease) Screening for colon cancer Chief Complaint Amb Documentation DYSPNEA DYSPNEA FOLLOW UP LEFT HIP room 1 lung cancer screening Personal history of nicotine dependence Reason for Visit Chronic left hip racheal n COPD (chronic obstructive pulmonary disease) Screening for colon cancer Leg length discrepancy Lumbar spondylosis Mechanical pain of left knee Osteoarthritis of left hip Encounter for screening for malignant neoplasm of lung History of tobacco use Chief Complaint lung cancer screenin g Personal history of nicotine dependence Reason for Visit Encounter for screen ing for malignant neoplasm of lung History of tobacco use Chief Complaint Admit Date SCREENING November 01, 2024 2:49p m CT CALCIUM SCORING November 01, 2024 2:56p m cp February 08, 2025 1 2:12pm Additional Source Comments (unrecognized sect ion and content) No Status Records FoundNo Status Records Found INFORMATION SOURCE (unrecogn ized section and content) DATE CREATED AUTHOR 08/05/2018 [facility] ([place]) DATE CREATED AUTHOR AUTHOR'S ORGANIZ ATION 03/10/2025 [facility] Goals (unrecognized section and content) Goals may be documented in a n alternate sectionGoals may be documented in an alternate sectionGoals may be documented in an alternate sectionGoals may be documented in an alternate sectionGoals may be documented in an alternate section Care Teams (unrecognized sec tion and content) Team Status: Active Member Role Status Dates Dr. Bernabe Middleton MD Primary Care Provider Active Team Status: Inactive Member Role Status Dates Dr. Bernabe Middleton MD Primary Care Provider Active Madhuri Zabala [facility] Attending Provider, Referring Provider Active Team Status: Inactive Member Role Status Dates Dr. Bernabe Middleton MD Primary Care Provider Active Dr. Andrew Collier MD Attending Provider, Referrin g Provider Active Team Status: Active Member Role Status Dates Dr. Bernabe Middleton MD Primary Care Provider Active Juhi Riley Attending Provider Active Team Status: Active Member Role Status Dates Dr. Bernabe Middleton MD Primary Care Provider Active Luke Cai [facility] Referring Provider, Other Provider Active Dr. Yehuda Bueno DO Attending Provider Active Team Status: Inactive Member Role Status Dates Dr. Bernabe Middleton MD Primary Care Provider, Refer ring Provider Active Luke Cai [facility] Attending Provider Active Team Status: Inactive Member Role Status Dates Dr. Bernabe Middleton MD Primary Care Provider, Refer ring Provider Active Dr. Oliver Brewster DO Attending Provider Active Team Status: Active Member Role Status Dates Dr. Bernabe Middleton MD Primary Care Provider, Refer ring Provider Active Dr. Cedric Correa MD Attending Provider, Other Prov ider Active Team Status: Inactive Member Role Status Dates Dr. Bernabe Middleton MD Primary Care Provider Active Dr. Donal Randall MD Attending Provider Active Team Status: Inactive Member Role Status Dates Dr. Bernabe Middleton MD Primary Care Provider, Refer ring Provider Active Dr. Cedric Correa MD Attending Provider Active Team Status: Inactive Member Role Status Dates Dr. Bernabe Middleton MD Primary Care Provider Active Luke Cai NP, [facility] Attending Provider, Referring Prov ider Active Team Status: Active Member Role/Relationship Status Dates Dr. Bernabe Middleton MD Primary care physician Activ e Team Status: Active Member Role/Relationship Status Dates Dr. Bernabe Middleton MD Primary care physician Activ e Start: November 01, 2024 Dr. Bernabe Middleton MD Attending physician Active Start: November 01, 2024 Team Status: Active Member Role/Relationship Status Dates Dr. Bernabe Middleton MD Primary care physician Activ e Start: November 01, 2024 Dr. Bernabe Middleton MD Referring Provider Active Start: November 01, 2024 Dr. Donal Randall MD Attending physician Active Start: November 01, 2024 Team Status: Inactive Member Role/Relationship Status Dates Dr. Bernabe Middleton MD Primary care physician Activ e Start: February 08, 2025 End: February 08, 2025 Dr. Ubaldo Anand DO Attending physician Active Start: February 08, 2025 End: February 08, 2025 Dr. Ubaldo Anand DO Emergency Departme nt Physician Active Start: February 08, 2025 End: February 08, 2025 FOR RECORDS PERTAINING TO PATIENTS WHO ARE OR HAVE BEEN ENROLLED IN A CHEMICAL DEPENDENCY/SUBSTANCEABUSE PROGRAM, SOME INFORMATION MAY BE OMITTED. This clinical summary was aggregated from multiple sources. Caution should be exercised in using it in the provision of clinical care. This summary normalizes information from multiple sources, and as a consequence, information in this document may materially change the coding, format and clinical context of patient data. In addition, data may be omitted in some cases. CLINICAL DECISIONS SHOULD BE BASED ON THE PRIMARY CLINICAL RECORDS. [employer] provides no warranty or guarantee of the accuracy or completeness of information in this document.
[2025-03-25 09:43] LABS: Hematocrit 39.2 % (40-54); Hemoglobin 12.3 g/dL (13.0-16.5); Immature Granulocytes Count 0.020 X10^3/uL (0.0-0.0); Mean Corp Hgb Conc 31.4 g/dL (32-36); Mean Corpuscular Volume 88.1 fL (80-94); Mean Platelet Vol. 8.9 fl (6.2-12.0); NRBC Flagged by Analyzer 0 % (0-5); Platelet Count 263 K/mm3 (150-450); RBC Distribution Width CV 12.7 % (11.6-14.6); RBC Distribution Width SD 41.1 fl (35.1-43.9); Red Blood Count 4.45 M/mm3 (4.6-6.2); White Blood Count 5.4 K/mm3 (4.4-11.0)
[2025-03-25 10:53] LABS: AST(SGOT) 19 U/L (<=37); Alanine Aminotransfer ALT/SGPT 13 U/L (<=46); Albumin, Serum 4.0 g/dL (3.4-4.8); Alkaline Phosphatase 73 U/L (40-129); Anion Gap 10 (5-15); BUN 13 mg/dL (4-19); BUN/Creat Ratio 14.8 RATIO (10-20); Calcium,Total 9.1 mg/dL (7.6-11.0); Carbon Dioxide 26.2 mmol/L (21.0-32.0); Chloride 102 mmol/L (98-108); Globulin 3.5 g/dL (2.2-4.2); Glucose 101 mg/dL (70-99); Potassium 4.0 mmol/L (3.3-5.1)
[2025-03-25 12:39] LABS: Cholesterol 189 mg/dL (<=200); Low Density Lipoprotein Calc. 114 mg/dL; Triglycerides 112 mg/dL; Very Low Density Lipoprotein 22 mg/dL (5-40); cholesterol:hdl ratio screen 3.46
== END | disposition home or self-care (01) ==
LOC: LAB 09:10
PROVIDERS: PCP Internal Medicine; Referring Provider Internal Medicine; Visit Provider Internal Medicine
DX: I10 Essential (primary) hypertension (principal); E78.5 Hyperlipidemia, unspecified
CPT/HCPCS: 36415; 80053; 80061; 85025

== ENCOUNTER → 2025-04-26 | Outpatient (CLI) | payer BC, SELFPAY ==
--- NOTE | 2025-04-26 16:00 | RAD_ITS ---
PROCEDURE: CHEST PA AND LATERAL 04/26/2025 REASON FOR EXAM: COUGH TECHNIQUE: Procedure Code: RADCXR Modality: DX Procedure: CHEST PA AND LATERAL FINDINGS: No focal consolidation. No pleural effusion or pneumothorax. Cardiac silhouette is within normal limits. No acute fractures. RAD/Chest PA and Lateral IMPRESSION: No focal consolidations Reading Location: [facility]
== END | disposition home or self-care (01) ==
LOC: RAD 15:53
PROVIDERS: PCP Internal Medicine; Referring Provider Internal Medicine; Visit Provider Internal Medicine
DX: R05.9 Cough, unspecified (principal)
CPT/HCPCS: 71046